=== PATIENT | male | born 1960 | race Two or more races ===

== ENCOUNTER 2019-12-27 07:49 | Outpatient (REF) | payer MEDICARE, MEDICAID, SELFPAY ==
--- NOTE | 2019-12-27 08:59 | MHC.AU.P13 ---
Adult Audiological Evaluation Date of Visit: 12/27/19 Reason for Appointment: Audiologic re-evaluation to determine possible change in hearing ability. David reports he recently experienced bilateral ear infections and treated with antibiotics by his Primary Care Physician. He reports some improvement in hearing following treatment. When seen in 2018 at this office, a trial with hearing aids was recommended; however, his insurance benefit was out of network and hearing aids could not be obtained at this office. Information was provided to contact the insurance. David notes he did not pursue amplification at that time, but is interested in trialing hearing aids now. Does patient feel they have a hearing loss?: Yes If Yes, Which Ear?: Both Ears Has hearing been tested previously?: Yes Previous Hearing Test Results: 03/12/2017 Asymmetric mild dropping to severe mixed hearing loss with the right ear being poorer than the left. Middle ear dysfunction was noted, left ear greater than right. Otoscopy: Right Ear: Very dull tympanic membrane Left Ear: Very dull tympanic membrane Tympanometry: Right Ear: Non-compliant Middle Ear System (Type B) Left Ear: Non-compliant Middle Ear System (Type B) Hearing Evaluation: Transducer(s) Used: Insert Earphones Bone Conduction Method: Conventional Audiometry Stimuli Used: Pure Tones Right Ear: Description of Hearing: Mild dropping to severe mixed hearing loss Left Ear: Description of Hearing: Mild sloping to moderate mixed hearing loss Speech Recognition Threshold (SRT): Method Used: Monitored Live Voice Stimuli Used: Spondee Words Right Ear: 35 Left Ear: 25 Word Discrimination: Method: Recorded Lists Word Lists Used: NU-6 Right Ear: 88% at a listening level of 75 dB HL Left Ear: 96% at a listening level of 65 dB HL Comparison: Compared to most recent evaluation: Overall right ear thresholds are stable and left ear levels have improved approximately 10 dB compared to 2018 Recommendations: Recommendations: Audiological re-evaluation in one year. Trial with amplification is recommended. Referral to Ear, Nose, and Throat to address middle ear dysfunction. Recommendations (Other): Provided insurance contact information to pursue hearing aids. Diagnosis: Primary Diagnosis: H90.6 Mixed Hearing Loss, Bilateral Secondary Diagnosis: H69.93 Unspecified Eustachian Tube Dysfunction, Bilateral Services Performed: Services Performed: Comprehensive Audiological Evaluation (CPT 76374) Tympanometry (CPT 99103) Signature: Provider: Lio Bustillo, [facility]
== END 2019-12-27 07:50 | disposition home or self-care (01) ==
LOC: HO.SH 07:49
PROVIDERS: PCP Internal Medicine; Referring Provider Nurse Practitioner Family; Visit Provider Internal Medicine
DX: H90.6 Mixed conductive and sensorineural hearing loss, bilateral (principal); H69.93 Unspecified Eustachian tube disorder, bilateral
CPT/HCPCS: 92557; 92567

== ENCOUNTER → 2020-06-09 15:23 | Outpatient (BNVA) | payer MEDICARE, MEDICAID, SELFPAY | PROVIDERS: PCP Internal Medicine; Referring Provider Internal Medicine; Visit Provider Student in an Organized Health Care Education/Training Program ==

== ENCOUNTER → 2020-08-20 19:34 | Outpatient (REF) | payer MEDICARE, MEDICAID, SELFPAY | LOC: HO.SL 19:34 | PROVIDERS: Visit Provider Internal Medicine | DX: G47.33 Obstructive sleep apnea (adult) (pediatric) (principal) | CPT/HCPCS: 95810 ==

== ENCOUNTER → 2020-09-01 07:56 | Outpatient (BNVA) | payer MEDICARE, SELFPAY | PROVIDERS: PCP Internal Medicine; Visit Provider Student in an Organized Health Care Education/Training Program | DX: M10.9 Gout, unspecified (principal) | CPT/HCPCS: 99212 ==

== ENCOUNTER → 2021-05-02 07:43 | Outpatient (BNVA) | payer MEDICARE, MEDICAID, SELFPAY | PROVIDERS: PCP Internal Medicine; Visit Provider Nurse Practitioner Family | DX: M10.9 Gout, unspecified (principal); Z79.899 Other long term (current) drug therapy | CPT/HCPCS: 99212 ==

== ENCOUNTER 2021-06-18 07:56 | Outpatient (REF) | payer MEDICARE, MEDICAID, SELFPAY ==
--- NOTE | 2021-06-18 | PFT_ITS ---
INDICATION: Asthma. SPIROMETRY: The FEV1 to FVC of 80% with an FEV1 of 2.87 L, which is 88% predicted, an FVC of 3.58 L which is 85% predicted. No significant response to bronchodilators noted. Maximum voluntary ventilation 82% predicted. LUNG VOLUMES: Total lung capacity 82% predicted with an expiratory reserve volume of 16% predicted secondary to an elevated BMI. DIFFUSION CAPACITY: DLCO 87% predicted. COMPARISONS: None. INTERPRETATION: No obstructive nor restrictive ventilatory defects identified. No significant response to bronchodilators noted. Normal maximum voluntary ventilation. Normal lung volumes except for decrease in the expiratory reserve volume secondary to an elevated BMI and diffusing capacity is within normal limits. If asthma is in the differential, methacholine challenge should be helpful in assessing for hyper-reactive airways, otherwise clinical correlation warranted. MD JESICA Powell/MODL / [id number]
== END 2021-06-18 07:57 | disposition home or self-care (01) ==
LOC: HO.RESP 07:56
PROVIDERS: PCP Internal Medicine; Visit Provider Internal Medicine
DX: J45.20 Mild intermittent asthma, uncomplicated (principal)
CPT/HCPCS: 94060; 94727; 94729

== ENCOUNTER → 2021-06-29 08:47 | Outpatient (BNVA) | payer MEDICARE, MEDICAID, SELFPAY | PROVIDERS: PCP Internal Medicine; Referring Provider Internal Medicine; Visit Provider Nurse Practitioner | DX: Z12.11 Encounter for screening for malignant neoplasm of colon (principal) | CPT/HCPCS: 99202 ==

== ENCOUNTER 2021-06-30 10:01 | Outpatient (REF) | payer MEDICARE, MEDICAID, SELFPAY ==
[2021-06-30 10:13] LABS: MANUAL DIFF FLAG NO
[2021-06-30 10:42] LABS: Basophils Percent Auto 0.5 % (0-2); Eosinophils Absolute Auto 0.3 X10*3/uL (0.0-0.4); Hematocrit 40.7 % (42.0-52.0); Hemoglobin 13.3 g/dl (14.0-18.0); Imm Gran Abs Auto 0.02 X10*3/uL (0.00-0.03); Imm Gran Pct Auto 0.3 % (0.0-0.4); Lymphocytes Absolute Auto 2.2 X10*3/uL (1.2-4.9); Lymphocytes Percent Auto 29.8 % (20-40); Mean Corpuscular HGB Conc 32.7 g/dl (31.0-36.0); Mean Corpuscular Hemoglobin 28.1 pg (27.0-33.0); Mean Corpuscular Volume 85.9 fL (80.0-98.0); Mean Platelet Volume 9.5 fL (9.4-12.4); Monocytes Absolute Auto 0.6 X10*3/uL (0.1-1.2); Monocytes Percent Auto 7.4 % (2-11); Neutrophils Absolute Auto 4.3 x10*3/uL (2.0-8.3); Platelet Count 218 X10*3/uL (160-400); Red Blood Count 4.74 X10*6/uL (4.60-5.80); White Blood Count 7.5 X10*3/uL (4.8-10.8)
[2021-06-30 11:22] LABS: Alanine Aminotransferase 30 U/L (0-40); Alkaline Phosphatase 63 U/L (39-117); Anion Gap 12 (12-20); Aspartate Amino Transferase 27 U/L (5-37); Bilirubin Total 0.5 mg/dL (0.0-1.0); Blood Urea Nitrogen 17 mg/dL (9-16); Calcium 8.9 mg/dL (8.4-10.2); Carbon Dioxide 22 mmol/L (22-29); Chloride 107 mmol/L (96-108); Estimated Glomerular Filt Rate > 60; Glucose Random 107 mg/dL (60-115); Potassium 4.4 mmol/L (3.3-5.1); Sodium 137 mmol/L (135-145); Total Protein 6.9 g/dL (6.5-8.0)
== END 2021-06-30 10:02 | disposition home or self-care (01) ==
LOC: HO.LAB 10:01
PROVIDERS: Absent Provider Nurse Practitioner Family; PCP Internal Medicine; Visit Provider Nurse Practitioner
DX: Z12.11 Encounter for screening for malignant neoplasm of colon (principal)
CPT/HCPCS: 36415; 80053; 85025

== ENCOUNTER 2022-05-03 09:55 | Day surgery (SDC) | payer MEDICARE, MEDICAID, SELFPAY ==
[2022-04-30 15:11] VITALS: BMI 34.9
--- NOTE | 2022-05-02 13:28 | HO.ANESPROP2 ---
Documented by User: Chandrika Weston NP 05/02/22 13:28 HPI - Anesthesia Eval Consult details Narrative: 62yo M for Colonoscopy PMFSH Active Problems Active Problems: All Active Problems (Updated 04/30/22 @ 15:06 by Brook Grady RN) Gout (Acute) CAROLE (obstructive sleep apnea) (Acute) Hypertension (Acute) High cholesterol (Acute) Asthma (Acute) Hearing loss (Acute) Degenerative disc disease, lumbar (Acute) Varicose veins of anus or rectum (Acute) Gout (Acute) Colon cancer screening (Acute) Past Medical History Medical History (Updated 04/30/22 @ 15:06 by Brook Grady RN) Asthma DDD (degenerative disc disease), lumbar Elevated cholesterol Gout HTN (hypertension) Sleep apnea Surgical History Surgical History (Updated 04/30/22 @ 15:09 by Brook Grady RN) H/O colonoscopy Hx of vasectomy Social History Social History Alcohol intake: former Patient Tobacco Use Status: Former Tobacco user Tobacco use type: Cigarette Cigarettes Per Day: 25 Years Smoked: 10 Advance Directives: No Advance Directives Information Provided: Yes Meds Allergies Allergy/AdvReac Type Severity Reaction Status Date / Time No Known Allergies Allergy Verified 06/29/21 09:08 Home Medications Medication Instructions Recorded Confirmed Last Taken Type albuterol sulfate 90 mcg/actuation 2 puff inhalation Q6H PRN 09/01/20 Unknown History aerosol inhaler fluticasone propionate 50 1 spray intranasal DAILY 09/01/20 Unknown History mcg/actuation nasal spray,suspension lisinopril 20 1 tab PO DAILY 09/01/20 Unknown History mg-hydrochlorothiazide 12.5 mg tablet multivitamin 1 tab PO DAILY 09/01/20 Unknown History naproxen 500 mg tablet 500 mg PO BID 09/01/20 Unknown History allopurinol 300 mg tablet 300 mg PO DAILY 05/02/21 Unknown History indomethacin 50 mg capsule 50 mg PO TID PRN 05/02/21 Unknown History sildenafil 50 mg tablet (Viagra) 50 mg PO DAILY PRN 05/02/21 05/02/21 Unknown History Exam Exam Date and Time: May 02, 2022 1328 Height,Weight and Vital Signs: Height 5 ft 8 in Weight 104.326 kg Assessment and Plan Assessment Anesthesia Assessment: Chart Reviewed Documented by User: Arturo Garcia MD 05/03/22 10:58 PMFSH Past Medical History Medical History (Updated 04/30/22 @ 15:06 by Brook Grady RN) Asthma DDD (degenerative disc disease), lumbar Elevated cholesterol Gout HTN (hypertension) Sleep apnea Family History Family history of problems with anesthesia: No Surgical History Surgical History (Updated 04/30/22 @ 15:09 by Brook Grady RN) H/O colonoscopy Hx of vasectomy History of Problems with Anesthesia: No Social History Social History Alcohol intake: former Patient Tobacco Use Status: Former Tobacco user Tobacco use type: Cigarette Cigarettes Per Day: 25 Years Smoked: 10 Advance Directives: No Advance Directives Information Provided: Yes Meds Allergies Allergy/AdvReac Type Severity Reaction Status Date / Time No Known Allergies Allergy Verified 06/29/21 09:08 Home Medications Medication Instructions Recorded Confirmed Last Taken Type albuterol sulfate 90 mcg/actuation 2 puff inhalation Q6H PRN 09/01/20 Unknown History aerosol inhaler fluticasone propionate 50 1 spray intranasal DAILY 09/01/20 Unknown History mcg/actuation nasal spray,suspension lisinopril 20 1 tab PO DAILY 09/01/20 Unknown History mg-hydrochlorothiazide 12.5 mg tablet multivitamin 1 tab PO DAILY 09/01/20 Unknown History naproxen 500 mg tablet 500 mg PO BID 09/01/20 Unknown History allopurinol 300 mg tablet 300 mg PO DAILY 05/02/21 Unknown History indomethacin 50 mg capsule 50 mg PO TID PRN 05/02/21 Unknown History sildenafil 50 mg tablet (Viagra) 50 mg PO DAILY PRN 05/02/21 05/02/21 Unknown History Exam Airway Mallampati Class: II TM Dist: >3cm Neck ROM: Limited Heart: rrr Lungs: cta Assessment and Plan Assessment Anesthesia Assessment: Anesthesia Plan Discussed Final Anesthetic Review Family History of Problems with Anesthesia: No History of Problems with Anesthesia: No ASA Class: III Final Preanesthetic Review: No Changes in Pt Med Stat, Meds/Allgs Chart Reviewed, Consent Obtained/Reviewed and Anes Risks/Benef Reviewed Patient Risk: Intermediate Procedure Risk: Low Anesthetic Plan Anesthetic Plan: GA and Agree w/ Assess. and Plan Disposition: Standard PACU
--- NOTE | 2022-05-03 10:37 | MHC.SHP ---
Pre-Procedural Eval Section A Date of Service: 05/03/22 The patient is an INPATIENT: No The History & Physical has been completed within 30 days and I have reviewed it.: No Section B Chief Complaint: screening, hx of colon polyps Details of Present Illness: Colon cancer screening, history of colon polyps Relevant Family History (Specify if Yes): No Relevant Social History: Tobacco Use Present Medications: see Short Stay Collaborative assessment Medical History: Significant History (Obstructive sleep apnea Hypertension High cholesterol Asthma Sensorineural hearing loss Lumbar degenerative disc disease Varicose veins Erectile dysfunction-vascular Gouty arthritis) History of Previous Operations: Relevant previous surgery/procedure and date(s) (History of colonoscopy) Allergies: Allergies Allergy/AdvReac Type Severity Reaction Status Date / Time No Known Allergies Allergy Verified 06/29/21 09:08 Review of Systems Sugical H&P ROS: Negative: Constitution, Cardiovascular, Respiratory and Gastrointestinal Exam Surgical H&P Exam: Normal: Heart, Normal: Lungs, Normal: Extremities and Normal: Abdomen Plan Diagnosis/Plan: Unchanged I have reviewed the history and physical and performed a pertinent physical examination on my patient. No changes have occurred unless specified. Time Spent With Patient Time: Total time managing care of this patient today ____ minutes.
--- NOTE | 2022-05-03 10:44 | P.BOP_ITS ---
Brief Operative Note Date of Service: 05/03/22 Pre-op diagnosis: Colon cancer screening, history of colon polyps Post-op diagnosis: other (Colon polyps, diverticulosis, hemorrhoids) Procedure: COLONOSCOPY TO CECUM WITH BIOPSIES AND SNARE POLYPECTOMY Surgeon: Kamlesh Mcgee MD Anesthesia: MAC Was an Event Management Consultant used for this Procedure?: Yes Event Management Consultant: Emma Patel Estimated blood loss (mL): 1 Pathology: other ( a. transverse colon polyp b. rectal polyp) Condition: stable Disposition: PACU
--- NOTE | 2022-05-03 10:44 | P.OP_ITS ---
Operative Note Operative Note Date of Service: 05/03/22 Narrative: COLONOSCOPY TILL CECUM WITH BIOPSIES AND SNARE POLYPECTOMY Indication:? Colon cancer screening Endoscopist:? Kamlesh Mcgee MD Anesthesia Provider:?Dr Dodson Anesthesia type:?MAC Consent: Indications for the procedure and potential complications of bleeding, perforation, reaction to medications and missed diagnosis were discussed with the patient and informed consent was obtained. Instrument: Olympus PCF H 190 L variable stiffness pediatric colonoscope Monitoring: Vital signs and clinical assessment, intermittent blood pressure monitoring, continuous EKG monitoring, Pulse oximetry and Carbon Dioxide monitoring were done throughout the procedure. Please see anesthesia flowsheet. Colon withdrawl time was 19 minutes. Procedure: The patient was placed in the left lateral decubitis position and pre-procedure medications were administered. After a digital rectal examination of the ano-rectum, the video colonoscope was inserted into the rectum and advanced through the colon to the cecum. The colonoscope was slowly withdrawn in a retrograde panoramic fashion and the colon mucosa was carefully examined including a retroflexed view of the rectum. Findings and interventions are described below. Procedure Difficulty: Left lower quadrant pressure was applied to intubate the cecum Findings: Terminal Ileum: Not evaluated Cecum: Normal Ascending Colon: 8-10 mm non-bleeding AVM Transverse Colon: A 10-12 mm sessile polyp removed by a hot snare Descending Colon: Normal Sigmoid Colon: Moderate diverticulosis Rectum: A 5-6 mm diminutive appearing polyp - biopsied. Ano-rectum: Moderate internal hemorrhoids Colon preparation: Excellent Impression and Post Procedure Diagnosis: Colonoscopy Findings: One medium sized and one small polyps removed Moderate diverticulosis seen in the sigmoid colon Moderate hemorrhoids on retroflexed exam. Plan: Await pathology results Patient has an appointment on 05/16/22 in the GI Clinic with Guillermina Hnutley NP. Repeat Colonoscopy interval based on path results - in 3-5 years if polyps are adenomatous and 10 years if polyps are hyperplastic. Above findings were reviewed with the patient and colon polyps and diverticulosi s handouts were given in the discharge area
[2022-05-03 11:24] VITALS: BP 152/84; PULSE 85; RESP 14; TEMP 37.1; O2SAT 95
[2022-05-03 12:03] VITALS: BP 126/79; PULSE 89; RESP 16; TEMP 36.9; O2SAT 95
[2022-05-03 12:17] VITALS: BP 144/84; PULSE 71; RESP 16; O2SAT 96
[2022-05-03 12:30] VITALS: BP 126/93; PULSE 78; RESP 16; TEMP 36.9; O2SAT 96
== END 2022-05-03 13:20 | disposition home or self-care (01) ==
PROVIDERS: PCP Internal Medicine; Visit Provider Internal Medicine Gastroenterology
PROC: 0DJD8ZZ Inspection of Lower Intestinal Tract, Via Natural or Artificial Opening Endoscopic (ICD-10-PCS; CPT 45378; principal; 2022-05-03 11:00)
DX: Z12.11 Encounter for screening for malignant neoplasm of colon (principal); Z86.010 Personal history of colon polyps; K63.5 Polyp of colon; K62.1 Rectal polyp; K55.20 Angiodysplasia of colon without hemorrhage; K57.30 Diverticulosis of large intestine without perforation or abscess without bleeding; K64.8 Other hemorrhoids; K21.9 Gastro-esophageal reflux disease without esophagitis; I10 Essential (primary) hypertension; E78.00 Pure hypercholesterolemia, unspecified; Z87.891 Personal history of nicotine dependence; G47.33 Obstructive sleep apnea (adult) (pediatric); J45.909 Unspecified asthma, uncomplicated; M10.00 Idiopathic gout, unspecified site; Z79.51 Long term (current) use of inhaled steroids; Z79.899 Other long term (current) drug therapy
CPT/HCPCS: 45385; 45380; 88305

== ENCOUNTER → 2022-05-16 09:42 | Outpatient (BNVA) | payer MEDICARE, MEDICAID, SELFPAY | PROVIDERS: PCP Internal Medicine; Visit Provider Nurse Practitioner | DX: D12.6 Benign neoplasm of colon, unspecified (principal) | CPT/HCPCS: 99212 ==

== ENCOUNTER 2022-06-21 13:46 | Outpatient (REF) | payer MEDICARE, MEDICAID, SELFPAY ==
--- NOTE | ~2022-06-21 | XR_ITS ---
EXAMINATION: XR HIP, RIGHT CLINICAL INFORMATION: Right hip pain. COMPARISON: None available. TECHNIQUE: Two views of the right hip. FINDINGS: Minimal right hip degenerative joint changes are seen. There is no acute fracture or dislocation. The visualized right hemipelvis is intact. The soft tissues are unremarkable. XR/XR hip RT min 2V IMPRESSION: Minimal right hip degenerative joint changes suggesting osteoarthritis. No acute fracture.
== END 2022-06-21 13:47 | disposition home or self-care (01) ==
LOC: HO.XRAY 13:46
PROVIDERS: Visit Provider Student in an Organized Health Care Education/Training Program
DX: M25.551 Pain in right hip (principal)
CPT/HCPCS: 73502

== ENCOUNTER 2022-09-26 09:19 | Outpatient (REF) | payer MEDICARE, MEDICAID, SELFPAY ==
[2022-09-26 11:59] LABS: Cholesterol 155 mg/dL; HDL Cholesterol 29 mg/dL; LDL Cholesterol Calculated 98 mg/dl; Triglycerides 142 mg/dL
[2022-09-26 12:03] LABS: Anion Gap 15 (12-20); Blood Urea Nitrogen 21 mg/dL (9-16); Calcium 9.6 mg/dL (8.4-10.2); Carbon Dioxide 21 mmol/L (22-29); Chloride 107 mmol/L (96-108); Estimated Glomerular Filt Rate > 60; Glucose Random 110 mg/dL (60-115); Potassium 4.4 mmol/L (3.3-5.1); Sodium 139 mmol/L (135-145)
[2022-09-26 12:17] LABS: Reflex LDLD? No
[2022-09-26 12:21] LABS: TSH reflex Free T4 2.29 uIU/mL (0.32-4.0); Vitamin D 25-OH Total 27.2 ng/mL (>30)
== END 2022-09-26 09:20 | disposition home or self-care (01) ==
LOC: HO.HHCL 09:19
PROVIDERS: Visit Provider Internal Medicine
DX: M16.0 Bilateral primary osteoarthritis of hip (principal); I10 Essential (primary) hypertension
CPT/HCPCS: 36415; 80048; 80061; 82306; 84443

== ENCOUNTER → 2023-01-09 19:00 | Outpatient (BNV) | payer MEDICARE, MEDICAID, SELFPAY | PROVIDERS: PCP Internal Medicine; Visit Provider Psychiatry & Neurology Neurology | DX: G47.33 Obstructive sleep apnea (adult) (pediatric) (principal) | CPT/HCPCS: 95811 ==

== ENCOUNTER → 2023-01-09 20:30 | Outpatient (REF) | payer MEDICARE, MEDICAID, SELFPAY | LOC: HO.SL 20:30 | PROVIDERS: PCP Internal Medicine; Visit Provider Internal Medicine | DX: G47.33 Obstructive sleep apnea (adult) (pediatric) (principal) | CPT/HCPCS: 95811 ==

== ENCOUNTER 2023-09-04 14:13 | Outpatient (AMB) | payer MEDICARE, MEDICAID, SELFPAY ==
--- NOTE | 2023-09-04 14:42 | MHC.OFFVIS ---
Vital Signs 09/04/23 14:46 Height 5 ft 6 in Weight 303 lb 12.752 oz BMI 49.0 BP 124/72 Blood Pressure Location Lt brachial Position Sitting Pulse 80 Pulse Source Pulse Oximeter Pulse Oximetry (%) 97 Oxygen Delivery Method Room Air Intake Visit Reasons: Gout/CM Intake Note: Patient presents for Gout. [employer] Hairspring Assembler Required: Yes Balance And Hairspring Assembler Services: Balance And Hairspring Assembler Present Balance And Hairspring Assembler Name: Emilia [id number] Allergies No Known Allergies Allergy (Verified 09/04/23 14:45) Medication List - Last Reconciled 09/04/23 by Tomy Perez MD albuterol sulfate 90 mcg/actuation 2 puffs inhalation Q6H PRN allopurinol 300 mg PO DAILY calcium carbonate (Calcium Antacid) 200 mg PO TID PRN fluticasone propionate 50 mcg/actuation 1 spray intranasal DAILY indomethacin 50 mg PO TID PRN lisinopril-hydrochlorothiazide 20-12.5 mg 1 tab PO DAILY loratadine 10 mg PO DAILY multivitamin 1 tab PO DAILY naproxen 500 mg PO BID sildenafil mg PO HPI Comments Details: This is a 63-year-old male with gout who presents for follow-up. He was last seen by Pascale Palencia about 2 years ago. He remains on allopurinol 300 mg daily. He states that he has been getting gout flare-ups affecting his knees. His right knee would become head. Most recent episode was last Friday, he took indomethacin 1 tab, he had diarrhea, the tablet was . [facility] Medical History DDD (degenerative disc disease), lumbar Sleep apnea Asthma Elevated cholesterol HTN (hypertension) Gout Surgical History Hx of vasectomy H/O colonoscopy Social History Alcohol intake: former Patient Tobacco Use Status: Former Tobacco user Tobacco use type: Cigarette Cigarettes Per Day: 25 Years Smoked: 10 Review of Systems [facility] Reports arthralgias Physical Exam Vital Signs: Last Vital Signs Pulse 80 09/04/23 14:46 BP 124/72 09/04/23 14:46 Pulse Ox 97 09/04/23 14:46 Oxygen Delivery Method Room Air 09/04/23 14:46 BMI result Body Mass Index 49.0 Const General: cooperative, healthy appearing and comfortable Nutritional Appearance: obese morbidly obese Orientation/consciousness: patient oriented x3 Limitations: no limitations HEENT Head: Yes normocephalic and Yes atraumatic Mouth: moist mucous membranes Resp Effort & Inspection: normal respiratory effort and able to speak in complete sentences Auscultation: clear to auscultation bilaterally Cardio Rate: regular rate Skin General skin exam: no rashes or lesions noted Neuro General: patient oriented x3 Extrem Other: Right groin pain with straight leg raise test Right knee pain with full flexion Bilateral limited flexion and extension of both knees No knee swelling, warmth or tenderness bilaterally No ankle swelling or tenderness bilaterally No tophi noted Assessment & Plan Assessment & Plan (1) Gout: Code(s): M10.9 - Gout, unspecified Category: Medical Qualifiers: Gout site: multiple sites Gout etiology: idiopathic Chronicity: chronic Presence of tophus: without tophus Qualified Code(s): M1A.09X0 - Idiopathic chronic gout, multiple sites, without tophus (tophi) Plan: This is a 63-year-old male with gout who presents for follow-up. He remains on allopurinol 300 mg daily. Patient states that he has been having gout flare-ups affecting his left knee. Upon evaluation the clinical history is not classic for gout flare-up, likely osteoarthritis of knees and hips. Will check uric acid level. Check x-rays of involved joints. Advised patient to try [id number] Voltaren gel for his knee pain Follow-up in 4-5 weeks Plan I spent 19 minutes reviewing patient's chart, evaluating patient, ordering diagnostic workup, counseling patient and documenting in the chart Orders: Orders Complete Blood Count Auto Diff Today M10.9 - Gout, unspecified XR hip LT min 2V Today M16.0 - Bilateral primary osteoarthritis of hip XR knee LT 3V Today M16.0 - Bilateral primary osteoarthritis of hip XR knee standing BI Today M16.0 - Bilateral primary osteoarthritis of hip Comprehensive Met. Panel Today M10.9 - Gout, unspecified Uric Acid Today M10.9 - Gout, unspecified XR hip RT min 2V Today M16.0 - Bilateral primary osteoarthritis of hip XR knee RT 3V Today M16.0 - Bilateral primary osteoarthritis of hip Coding Level of Care Code Est Pt Level 3 (30855) Diagnoses Idiopathic chronic gout of multiple sites without tophus M1A.09X0 Gout site: multiple sites Gout etiology: idiopathic Chronicity: chronic Presence of tophus: without tophus
[2023-09-04 14:46] VITALS: BP 124/72; PULSE 80; O2SAT 97; BMI 49.0
== END 2023-09-04 15:19 | disposition home or self-care (01) ==
PROVIDERS: PCP Internal Medicine; Visit Provider Student in an Organized Health Care Education/Training Program
DX: M1A.09X0 Idiopathic chronic gout, multiple sites, without tophus (tophi) (principal)
CPT/HCPCS: 99213

== ENCOUNTER 2023-09-04 14:13 | Outpatient (REF) | payer MEDICARE, MEDICAID, SELFPAY ==
--- NOTE | ~2023-09-04 | XR_ITS ---
EXAMINATION: XR BILATERAL HIPS WITH AP PELVIS CLINICAL INFORMATION: Bilateral hip pain COMPARISON: Right hip radiographs 06/21/2022 TECHNIQUE: AP and frog-leg lateral views of each hip and an AP view of the pelvis. FINDINGS: No fracture or malalignment. There is mild narrowing of the right hip joint with small marginal osteophytes along the superior acetabulum. The left hip appears normal. XR/XR hip BI w PEL1V IMPRESSION: Mild right hip osteoarthritis.
--- NOTE | ~2023-09-04 | XR_ITS ---
EXAMINATION: XR KNEE, RIGHT XR KNEE, LEFT CLINICAL INDICATION: Bilateral osteoarthritis of hip. COMPARISON: 01/29/2018 TECHNIQUE: 4 views of each knee. FINDINGS: RIGHT KNEE: Trace joint effusion. Mild narrowing of the medial and patellofemoral compartments with minimal marginal spurring. LEFT KNEE: Trace joint effusion. Moderate to marked narrowing of medial compartment with subchondral sclerosis. Small marginal osteophytes. Mild narrowing of the patellofemoral compartment with degenerative changes. XR/XR knee LT 4V IMPRESSION: 1. Moderate degenerative changes left knee. 2. Mild degenerative changes right knee.
--- NOTE | ~2023-09-04 | XR_ITS ---
EXAMINATION: XR KNEE, RIGHT XR KNEE, LEFT CLINICAL INDICATION: Bilateral osteoarthritis of hip. COMPARISON: 01/29/2018 TECHNIQUE: 4 views of each knee. FINDINGS: RIGHT KNEE: Trace joint effusion. Mild narrowing of the medial and patellofemoral compartments with minimal marginal spurring. LEFT KNEE: Trace joint effusion. Moderate to marked narrowing of medial compartment with subchondral sclerosis. Small marginal osteophytes. Mild narrowing of the patellofemoral compartment with degenerative changes. XR/XR knee RT 4V IMPRESSION: 1. Moderate degenerative changes left knee. 2. Mild degenerative changes right knee.
[2023-09-04 15:40] LABS: MANUAL DIFF FLAG NO
[2023-09-04 16:20] LABS: Basophils Absolute Auto 0.1 X10*3/uL (0.0-0.2); Basophils Percent Auto 0.6 % (0-2); Eosinophils Absolute Auto 0.2 X10*3/uL (0.0-0.4); Eosinophils Percent Auto 2.4 % (0-4); Hematocrit 41.1 % (42.0-52.0); Hemoglobin 13.7 g/dl (14.0-18.0); Imm Gran Abs Auto 0.03 X10*3/uL (0.00-0.03); Imm Gran Pct Auto 0.3 % (0.0-0.4); Lymphocytes Absolute Auto 2.7 X10*3/uL (1.2-4.9); Lymphocytes Percent Auto 30.4 % (20-40); Mean Corpuscular HGB Conc 33.3 g/dl (31.0-36.0); Mean Corpuscular Hemoglobin 28.8 pg (27.0-33.0); Mean Corpuscular Volume 86.3 fL (80.0-98.0); Mean Platelet Volume 9.4 fL (9.4-12.4); Monocytes Absolute Auto 0.6 X10*3/uL (0.1-1.2); Monocytes Percent Auto 7.1 % (2-11); Neutrophils Absolute Auto 5.2 x10*3/uL (2.0-8.3); Neutrophils Percent Auto 59.2 % (45-73); Platelet Count 232 X10*3/uL (160-400); Red Blood Count 4.76 X10*6/uL (4.60-5.80); Red Cell Distribution Width 15.4 % (11.0-16.0); White Blood Count 8.9 X10*3/uL (4.8-10.8)
[2023-09-04 17:32] LABS: Alanine Aminotransferase 40 U/L (0-40); Albumin Level 4.3 g/dL (3.5-5.0); Alkaline Phosphatase 62 U/L (39-117); Anion Gap 12 (12-20); Aspartate Amino Transferase 30 U/L (5-37); Bilirubin Total 0.6 mg/dL (0.0-1.0); Blood Urea Nitrogen 15 mg/dL (9-16); Calcium 9.6 mg/dL (8.4-10.2); Carbon Dioxide 26 mmol/L (22-29); Chloride 105 mmol/L (96-108); Estimated Glomerular Filt Rate > 60; Glucose Random 88 mg/dL (60-115); Potassium 4.5 mmol/L (3.3-5.1); Sodium 138 mmol/L (135-145); Total Protein 7.6 g/dL (6.5-8.0); Uric Acid 5.8 mg/dL (3.4-7.0)
== END 2023-09-04 14:14 | disposition home or self-care (01) ==
LOC: HO.LAB 14:13
PROVIDERS: PCP Internal Medicine; Visit Provider Student in an Organized Health Care Education/Training Program
DX: M1A.09X0 Idiopathic chronic gout, multiple sites, without tophus (tophi) (principal)
CPT/HCPCS: 36415; 73521; 73564; 80053; 84550; 85025; 99212

== ENCOUNTER 2023-11-05 15:27 | Outpatient (AMB) | payer MEDICARE, MEDICAID, SELFPAY ==
[2023-11-05 15:34] VITALS: BP 120/60; PULSE 58; O2SAT 95; BMI 48.5
--- NOTE | 2023-11-05 15:34 | MHC.OFFVIS ---
Vital Signs 11/05/23 15:34 Height 5 ft 6 in Weight 300 lb 7.841 oz BMI 48.5 BP 120/60 Blood Pressure Location Lt brachial Position Sitting Pulse 58 Pulse Source Pulse Oximeter Pulse Oximetry (%) 95 Oxygen Delivery Method Room Air Intake Visit Reasons: Gout Intake Note: Patient last seen by Doctor Tomy Perez on 09/04/23. Presents today for Gout and labs/XR's results. Patient refused the vp rheumatology today. Accompanied by: , granddaughter Allergies No Known Allergies Allergy (Verified 11/05/23 15:38) Medication List - Last Reconciled 11/05/23 by Tomy Perez MD albuterol sulfate 90 mcg/actuation 2 puffs inhalation Q6H PRN allopurinol 300 mg PO DAILY calcium carbonate (Calcium Antacid) 200 mg PO TID PRN fluticasone propionate 50 mcg/actuation 1 spray intranasal DAILY ibuprofen 600 mg PO Q6H indomethacin 50 mg PO TID PRN lisinopril-hydrochlorothiazide 20-12.5 mg 1 tab PO DAILY loratadine 10 mg PO DAILY multivitamin 1 tab PO DAILY naproxen 500 mg PO BID sildenafil mg PO HPI Comments Details: This is a 63-year-old male with gout and osteoarthritis who presents for follow-up. He presented last visit with right lower back pain, right hip and groin pain as well as left knee pain. He takes naproxen 500 mg without much relief. He states that his main complaint today is his right lower back pain. stated that patient had an injection has lower back about 10 years ago which gave him some relief. [facility] Medical History DDD (degenerative disc disease), lumbar Sleep apnea Asthma Elevated cholesterol HTN (hypertension) Gout Surgical History Hx of vasectomy H/O colonoscopy Social History Alcohol intake: former Patient Tobacco Use Status: Former Tobacco user Tobacco use type: Cigarette Cigarettes Per Day: 25 Years Smoked: 10 Review of Systems Musc Reports back pain, Reports arthralgias and Reports radiating pain into limb Physical Exam Vital Signs: Last Vital Signs Pulse 58 11/05/23 15:34 BP 120/60 11/05/23 15:34 Pulse Ox 95 11/05/23 15:34 Oxygen Delivery Method Room Air 11/05/23 15:34 BMI result Body Mass Index 48.5 Const General: cooperative, healthy appearing and comfortable Nutritional Appearance: obese morbidly obese Orientation/consciousness: patient oriented x3 Limitations: no limitations HEENT Head: Yes normocephalic and Yes atraumatic Mouth: moist mucous membranes Resp Effort & Inspection: normal respiratory effort and able to speak in complete sentences Cardio Rate: regular rate Skin General skin exam: no rashes or lesions noted Neuro General: patient oriented x3 Extrem Other: Walks with a limp Positive straight leg raise test on the right Right groin pain with right foot inversion Bilateral limited flexion and extension of both knees No knee swelling, warmth or tenderness bilaterally No ankle swelling or tenderness bilaterally No tophi noted Assessment & Plan Assessment & Plan (1) Lumbar radiculopathy: Code(s): M54.16 - Radiculopathy, lumbar region Category: Medical Plan: This is a 63-year-old male with history of gout who presents for evaluation of multiple joint pain including his right lower back radiating to his right lower extremity, right groin and left knee. His main complaint however is his right lumbar radiculopathy. He had an injection has lower back years ago which was effective. I discussed pain management evaluation. Patient agreed for referral. Will refer to pain management (2) Degenerative arthritis: Code(s): M19.90 - Unspecified osteoarthritis, unspecified site Category: Medical (3) Gout: Code(s): M10.9 - Gout, unspecified Category: Medical Qualifiers: Gout site: multiple sites Gout etiology: idiopathic Chronicity: chronic Presence of tophus: without tophus Qualified Code(s): M1A.09X0 - Idiopathic chronic gout, multiple sites, without tophus (tophi) Plan: Gout well controlled with allopurinol 300 mg daily. Uric acid level at target 5.8 mg/dL. Gets allopurinol prescription from PCP. Continue to follow-up with PCP Follow-up with us as needed Plan I spent 22 minutes reviewing patient's chart, evaluating patient, ordering diagnostic workup, counseling patient and documenting in the chart Orders: Referrals Pain Management Referral M54.16 - Radiculopathy, lumbar region Coding Level of Care Code Est Pt Level 4 (96903) Diagnoses Lumbar radiculopathy M54.16 Degenerative arthritis M19.90 Idiopathic chronic gout of multiple sites without tophus M1A.09X0 Gout site: multiple sites Gout etiology: idiopathic Chronicity: chronic Presence of tophus: without tophus
== END 2023-11-05 16:08 | disposition home or self-care (01) ==
PROVIDERS: PCP Internal Medicine; Visit Provider Student in an Organized Health Care Education/Training Program
DX: M54.16 Radiculopathy, lumbar region (principal); M19.90 Unspecified osteoarthritis, unspecified site; M1A.09X0 Idiopathic chronic gout, multiple sites, without tophus (tophi)
CPT/HCPCS: 99214

== ENCOUNTER → 2023-11-05 15:27 | Outpatient (BNVA) | payer MEDICARE, MEDICAID, SELFPAY | PROVIDERS: PCP Internal Medicine; Visit Provider Student in an Organized Health Care Education/Training Program | DX: M54.16 Radiculopathy, lumbar region (principal); M1A.09X0 Idiopathic chronic gout, multiple sites, without tophus (tophi); M19.90 Unspecified osteoarthritis, unspecified site | CPT/HCPCS: 99212 ==

== ENCOUNTER 2023-12-03 14:21 | Outpatient (AMB) | payer MEDICARE, MEDICAID, SELFPAY ==
--- NOTE | 2023-12-03 14:27 | A.OFFVIS_ITS ---
Vital Signs 12/03/23 14:28 Height 5 ft 6 in Weight 297 lb BMI 47.9 BP 126/73 Blood Pressure Location Lt brachial Position Sitting Pulse 71 Pulse Source Pulse Oximeter Pulse Oximetry (%) 97 Oxygen Delivery Method Room Air Intake Visit Reasons: Radiculopathy, lumbar region Allergies No Known Allergies Allergy (Verified 12/03/23 14:28) Medication List - Last Reconciled 12/03/23 by Alison Blake albuterol sulfate 90 mcg/actuation 2 puffs inhalation Q6H PRN allopurinol 300 mg PO DAILY calcium carbonate (Calcium Antacid) 200 mg PO TID PRN fluticasone propionate 50 mcg/actuation 1 spray intranasal DAILY ibuprofen 600 mg PO Q6H indomethacin 50 mg PO TID PRN lisinopril-hydrochlorothiazide 20-12.5 mg 1 tab PO DAILY loratadine 10 mg PO DAILY multivitamin 1 tab PO DAILY naproxen 500 mg PO BID sildenafil mg PO HPI Comments Details: David is a very pleasant 63-year-old male who presents the office today for evaluation management of his chronic right hip pain Patient endorses right hip pain rated today as 8/10, constant daily pain Denies inciting injury, fall, trauma Pain is worse with sitting, standing and walking Denies radiation of the pain down the lower extremity. Does endorse some pain in the right groin Pain with internal/external rotation of the right hip Denies lower back pain Patient completed physical therapy < 1 year ago without improvement of his symptoms. He continues with home exercise program He has tried ice, heat, nonsteroidal anti-inflammatory medications and Tylenol without improvement of his symptoms Denies numbness, tingling, weakness or shooting pains down either lower extremity Denies red flag symptoms including new loss of bowel, bladder or saddle anesthesia. Ambulates with the use of a cane In terms of muscle damage condition is described as dull, sore, aching, tight, squeezing Pain is negatively impacting patient's enjoyment of life, general activity, work, sleep, recreational activities Denies current use of anticoagulants Denies implantable devices, pacemaker defibrillator Denies current use of nicotine, tobacco, alcohol or illicit substances [facility] Medical History DDD (degenerative disc disease), lumbar Sleep apnea Asthma Elevated cholesterol HTN (hypertension) Gout Surgical History Hx of vasectomy H/O colonoscopy Social History Alcohol intake: former Patient Tobacco Use Status: Former Tobacco user Tobacco use type: Cigarette Cigarettes Per Day: 25 Years Smoked: 10 Review of Systems Const All systems reviewed & are unremarkable except as noted in HPI and below Physical Exam Vital Signs: Last Vital Signs Pulse 71 12/03/23 14:28 BP 126/73 12/03/23 14:28 Pulse Ox 97 12/03/23 14:28 Oxygen Delivery Method Room Air 12/03/23 14:28 BMI result Body Mass Index 47.9 General: awake, alert, oriented. Answers questions appropriately. Fully engaged in examination. Skin: warm, dry, intact HEENT: Normocephalic. Hearing intact. Cardiac: External chest normal in appearance. Respiratory: No cough, audible wheezing or stridor. Abdomen: without gross distension. MS: No obvious swelling or deformities. Nontender over midline lumbar vertebrae and lumbar paraspinal muscles Nontender over bilateral PSIS SLR negative bilaterally Nontender over GTB Right hip: Pain with internal/external rotation. Limited range of motion secondary to pain. Neurological: Oriented to person, place, time and situation. Thought process intact. Ambulates with the use of a cane Psychiatric: Appropriate mood and affect. Good judgment and insight. Results Reviewed Results Reviewed: 08/2023 XR/XR hip BI w PEL1V FINDINGS: No fracture or malalignment. There is mild narrowing of the right hip joint with small marginal osteophytes along the superior acetabulum. The left hip appears normal. IMPRESSION: Mild right hip osteoarthritis. Assessment & Plan Assessment & Plan (1) Right hip pain: Code(s): M25.551 - Pain in right hip Category: Medical Plan David is a very pleasant 63-year-old male who presented to the office today for evaluation management of his right hip pain Recent x-ray reviewed, results as per above Patient has exhausted conservative therapy including PT, home exercise program, ikom-cjl-cdtazyf medications, nonsteroidal anti medications, heat and ice all without improvement of symptoms Will schedule for fluoroscopy guided right intra-articular hip injection with local anesthetic. All questions and concerns were answered, patient agrees with plan. Follow up after injection, sooner if needed Coding Level of Care Code New Pt Level 4 (95212) Complex EM visit Add On G2211 Diagnoses Right hip pain M25.551
[2023-12-03 14:28] VITALS: BP 126/73; PULSE 71; O2SAT 97; BMI 47.9
== END 2023-12-03 14:56 | disposition home or self-care (01) ==
PROVIDERS: PCP Internal Medicine; Visit Provider Registered Nurse Emergency
DX: M25.551 Pain in right hip (principal)
CPT/HCPCS: 99204; 99214; G2211

== ENCOUNTER → 2023-12-03 14:21 | Outpatient (BNVA) | payer MEDICARE, MEDICAID, SELFPAY | PROVIDERS: PCP Internal Medicine; Visit Provider Registered Nurse Emergency | DX: M54.16 Radiculopathy, lumbar region (principal); M25.551 Pain in right hip | CPT/HCPCS: 99202 ==

== ENCOUNTER 2024-01-27 06:23 | Outpatient (REF) | payer MEDICARE, MEDICAID, SELFPAY ==
--- NOTE | ~2024-01-27 | FL_ITS ---
EXAMINATION: FLUORO GUIDANCE IN TREATMENT ROOM CLINICAL INFORMATION: Pain in right hip. Right hip injection. COMPARISON: None available. TECHNIQUE: Fluoroscopy supervised by: Dr. Glenn Waterman. Fluoroscopy time: 0.2 minutes. Cumulative Dose: 7.59 mGy. DAP: 0.0892 mGy-m2 (milligray-meter squared). Images: 2. FINDINGS: A needle overlies the right hip joint with a small amount of intra-articular contrast seen. FL/FL guidance in treatment room IMPRESSION: Fluoroscopy during procedure. Please see procedure report for additional information. Electronically signed by: Lefty Gomez MD 03/24/2024 04:18 PM [facility]
== END 2024-01-27 06:24 | disposition home or self-care (01) ==
LOC: CF 06:23
PROVIDERS: Visit Provider Anesthesiology
DX: M25.551 Pain in right hip (principal)
CPT/HCPCS: 20610; J2003; J2795; J3301; Q9967

== ENCOUNTER 2024-01-27 14:15 | Outpatient (AMB) | payer MEDICARE, MEDICAID, SELFPAY ==
--- NOTE | 2024-01-27 14:22 | A.OFFVIS_ITS ---
Vital Signs 01/27/24 14:23 01/27/24 14:51 BP 116/63 111/64 Blood Pressure Location Rt brachial Rt brachial Position Sitting Sitting Pulse 66 63 Pulse Source Pulse Oximeter Pulse Oximeter Pulse Oximetry (%) 98 97 Oxygen Delivery Method Room Air Room Air Intake Visit Reasons: RIGHT INTRA-ARTICULAR HIP INJECTION Allergies No Known Allergies Allergy (Verified 12/03/23 14:28) PFSH Medical History DDD (degenerative disc disease), lumbar Sleep apnea Asthma Elevated cholesterol HTN (hypertension) Gout Surgical History Hx of vasectomy H/O colonoscopy Social History Alcohol intake: former Patient Tobacco Use Status: Former Tobacco user Tobacco use type: Cigarette Cigarettes Per Day: 25 Years Smoked: 10 Physical Exam Vital Signs: Last Vital Signs Pulse 66 01/27/24 14:23 BP 116/63 01/27/24 14:23 Pulse Ox 98 01/27/24 14:23 Oxygen Delivery Method Room Air 01/27/24 14:23 Assessment & Plan Assessment & Plan (1) Right hip pain: Code(s): M25.551 - Pain in right hip Category: Medical Plan: right Intra-articular hip injection Informed consent was explained to the patient. All risks and benefits were explained. All questions were explained and answered.? The patient was taken inside of the operating room where he was positioned on the left lateral decubitus on operating table..? Time-out was performed delineating patient's name and date of , correct site, side, the nature of the procedure, patient's allergy, preoperative a ntibiotic if needed, need for DVT prophylaxis..? All operating room staff was participating in OR time-out procedure. right hip area of the patient was prepped with ChloraPrep and draped with sterile towels.? C-arm was brought over the operating field and picture of left and right lateral views of the bilateral hip joints were delineated on the screen.? The smaller joint silhouette was chosen as the target. Projection of the right trochanter to the skin was chosen as the initial needle insertion point.? After that the skin and subcutaneous tissues was anesthetized with 2% lidocaine 2.5 mL.? 22 gauge 5 in long needle was inserted through the skin and started to advance to the joint space under lateral and anterior posterior view.? When needle entered the capsule of the joint small amount of the contrast was injected delineating intra-articular space.? After that treatment solution containing ropivacaine 0.5% 3 mls mixed with 30 mg of Kenalog was injected into the joint . The needle was withdrawn sterile Band-Aid was applied. The patient tolerated procedure well. Plan David is a very pleasant 63-year-old male who presented to the office today for evaluation management of his right hip pain Recent x-ray reviewed, results as per above Patient has exhausted conservative therapy including PT, home exercise program, wvke-nep-npgaivo medications, nonsteroidal anti medications, heat and ice all without improvement of symptoms Will schedule for fluoroscopy guided right intra-articular hip injection with local anesthetic. All questions and concerns were answered, patient agrees with plan. Follow up after injection, sooner if needed Coding Level of Care Code Procedure Only Diagnoses Right hip pain M25.551
[2024-01-27 14:23] VITALS: BP 116/63; PULSE 66; O2SAT 98
[2024-01-27 14:51] VITALS: BP 111/64; PULSE 63; O2SAT 97
== END 2024-01-27 14:53 | disposition home or self-care (01) ==
LOC: HO.PMCPRC 14:16
PROVIDERS: PCP Internal Medicine; Visit Provider Anesthesiology
DX: M25.551 Pain in right hip (principal)
CPT/HCPCS: 20610; 77002

== ENCOUNTER 2024-02-11 14:29 | Outpatient (AMB) | payer MEDICARE, MEDICAID, SELFPAY ==
[2024-02-11 14:47] VITALS: BP 125/76; PULSE 77; O2SAT 96; BMI 47.4
--- NOTE | 2024-02-11 14:47 | A.OFFVIS_ITS ---
Vital Signs 02/11/24 14:47 Height 5 ft 6 in Weight 294 lb BMI 47.4 BP 125/76 Blood Pressure Location Rt brachial Position Sitting Pulse 77 Pulse Source Pulse Oximeter Pulse Oximetry (%) 96 Oxygen Delivery Method Room Air Intake Visit Reasons: RIGHT INTRA-ARTICULAR HIP INJECTION Intake Note: Pain today 0/10 Stonemason Apprentice Required: No Accompanied by: Self / Same As Patient Allergies No Known Allergies Allergy (Verified 02/11/24 14:47) HPI Comments Details: Patient presents back to the office today for follow-up, 1 month status post right intra-articular hip injection He reports 100% pain relief with improvement in functional and mobility since the injection. Denies any untoward effects Denies changes in diagnoses, allergies, medications Prior: David is a very pleasant 63-year-old male who presents the office today for evaluation management of his chronic right hip pain Patient endorses right hip pain rated today as 8/10, constant daily pain Denies inciting injury, fall, trauma Pain is worse with sitting, standing and walking Denies radiation of the pain down the lower extremity. Does endorse some pain in the right groin Pain with internal/external rotation of the right hip Denies lower back pain Patient completed physical therapy < 1 year ago without improvement of his symptoms. He continues with home exercise program He has tried ice, heat, nonsteroidal anti-inflammatory medications and Tylenol without improvement of his symptoms Denies numbness, tingling, weakness or shooting pains down either lower extremity Denies red flag symptoms including new loss of bowel, bladder or saddle anesthes ia. Ambulates with the use of a cane In terms of muscle damage condition is described as dull, sore, aching, tight, squeezing Pain is negatively impacting patient's enjoyment of life, general activity, work, sleep, recreational activities Denies current use of anticoagulants Denies implantable devices, pacemaker defibrillator Denies current use of nicotine, tobacco, alcohol or illicit substances [facility] Medical History DDD (degenerative disc disease), lumbar Sleep apnea Asthma Elevated cholesterol HTN (hypertension) Gout Surgical History Hx of vasectomy H/O colonoscopy Social History Alcohol intake: former Patient Tobacco Use Status: Former Tobacco user Tobacco use type: Cigarette Cigarettes Per Day: 25 Years Smoked: 10 Review of Systems Const All systems reviewed & are unremarkable except as noted in HPI and below Physical Exam Vital Signs: Last Vital Signs Pulse 77 02/11/24 14:47 BP 125/76 02/11/24 14:47 Pulse Ox 96 02/11/24 14:47 Oxygen Delivery Method Room Air 02/11/24 14:47 BMI result Body Mass Index 47.4 General: awake, alert, oriented. Answers questions appropriately. Fully engaged in examination. Skin: warm, dry, intact HEENT: Normocephalic. Hearing intact. Cardiac: External chest normal in appearance. Respiratory: No cough, audible wheezing or stridor. Abdomen: without gross distension. MS: No obvious swelling or deformities. Neurological: Oriented to person, place, time and situation. Thought process intact. Ambulates with the use of a cane Psychiatric: Appropriate mood and affect. Good judgment and insight. Results Reviewed Results Reviewed: 08/2023 XR/XR hip BI w PEL1V FINDINGS: No fracture or malalignment. There is mild narrowing of the right hip joint with small marginal osteophytes along the superior acetabulum. The left hip appears normal. IMPRESSION: Mild right hip osteoarthritis. Assessment & Plan Assessment & Plan (1) Right hip pain: Code(s): M25.551 - Pain in right hip Category: Medical Plan David presented back to the office today for follow-up, 1 month status post intra-articular right hip injection Reports 100% pain relief since the injection with no untoward effects All questions and concerns were answered, patient agrees with plan. Follow up when pain returns, sooner if needed Coding Level of Care Code Est Pt Level 3 (92486) Complex EM visit Add On G2211 Diagnoses Right hip pain M25.551
== END 2024-02-11 15:07 | disposition home or self-care (01) ==
PROVIDERS: PCP Internal Medicine; Visit Provider Registered Nurse Emergency
DX: M25.551 Pain in right hip (principal)
CPT/HCPCS: 99213; G2211

== ENCOUNTER → 2024-02-11 14:29 | Outpatient (BNVA) | payer MEDICARE, MEDICAID, SELFPAY | PROVIDERS: PCP Internal Medicine; Visit Provider Registered Nurse Emergency | DX: M25.551 Pain in right hip (principal) | CPT/HCPCS: 99212 ==

== ENCOUNTER 2024-08-25 09:21 | Outpatient (REF) | payer MEDICARE, MEDICAID, SELFPAY ==
--- OUTSIDE RECORDS SUMMARY | 2024-08-25 09:34 | XMS_ITS | Clinical Summary ---
Author Organization [facility] Address [address] [place] [address] Care Team Providers Care 3D Designer Name Role Phone Naon Cullen DMD Primary Care Provider [phone] Source Comments PLEASE NOTE, if this patient is a minor, it may be UNLAWFUL to discuss sensitive information that is contained in these records (such as FAMILY PLANNING, MENTAL HEALTH or SUBSTANCE ABUSE) with the minor patient's parent or other person without the patient's specific authorization.[facility] Social History Tobacco Use Types Packs/Day Years Used Date Smoking Tobacco: Never Assessed Social Connections Answer Date Recorded Social Connections and Isolation 0 2021 Financial Resource Strain Answer Date R ecorded Financial Resource Strain 0 2020 Stress Answer Date Recorded Stress 0 2021 Physical Activity Answer Date Recorded Physical Activity 0 2021 Food Insecurity Answer Date Recorded Food 0 2021 Transportation Needs Answer Date Record ed Transportation 0 2021 Housing Stability Answer Date Recorded Housing 0 2021 Safety and Environment Answer Date Davidson rded Safety 0 2021 Utilities Answer Date Recorded Utilities 0 2021 Employment Answer Date Recorded Employment 0 2021 Sex and Gender Information Value Date Recorded Sex Assigned at Not on file Legal Sex Male 10:10 AM PDT Gender Identity Not on file Sexual Orientation Not on file Plan of Treatment Not on file [place] Member Subscriber Plan / Payer (Ef fective 2015-Present) Name:David Toney Relation to Subscriber:Self Name:David Toney Payer ID:[id number] Group ID:Not on file Type:Medicaid Address: [place] [id number] [facility] [place] [address] Care Teams 3D Designer Relationship Specialty Start Date End Date Nano Cullen DMD [address] [place] [address] PCP - General 05/05/20
--- OUTSIDE RECORDS SUMMARY | 2024-08-25 09:34 | XMS_ITS | Encounter Summary ---
Author Organization [employer] Address [address] [place] [address] [address] [place] [address] Care Team Providers Care Customs Compliance Manager Name Role Phone Antonella Gerard MD Primary Care Provider + Reason for Visit * Reason Onset Date Comments chart prep 08/24/2024 Encounter Details Date Type Department Care Team ([facility] st Contact Info) Description 08/24/2024 Telephone [facility] [address] [place], [place] [phone] Antonella Gerard MD [address] [place] [address] chart prep Social History Tobacco Use Types Packs/Day Years Used Date Smoking Tobacco: Never Passive Smoke Exposure: Never Smokeless Tobacco: Never Alcohol Use Standard Drinks/Week Comments Never 0 (1 standard drink = 0.6 oz pur e alcohol) Housing Stability Answer Date Recorded What is your housing situation today? I have ej goins 12/17/[address] you li ve. Do you have problems with any of the following? None of the above 12/17/2022 Food Insecurity Answer Date Recorded Within the past 12 months, y ou worried that your food would run out before you got money to buy more: Sometimes True 2024 Within the past 12 months,th e food you bought just didn't last and you didn't have enough money to get more: Sometimes True 03/30/2024 Transportation Answer Date Recorded In the past 12 months, has l ack of transportation kept you from medical appts, meetings, work or from getting things needed for daily living? No 12/17/2022 Utilities Answer Date Recorded In the past 12 months, has t he electric, gas, oil or water [employer] threatened to shut off services in your home? No 12/17/2022 Depression Answer Date Recorded Patient Health Questionnaire-2 Score 0 08/25/2024 Internet Access Answer Date Recorded Internet Access Q1 Yes 03/30/2024 Internet Access Q2 Not on file 03/30/2024 Sex and Gender Information Value Date Recorded Sex Assigned at Male 12/24/2021 10:30 AM EDT Legal Sex Male 10:30 AM EDT Gender Identity Male 12/24/2021 10:30 AM EDT Sexual Orientation Straight 12/24/2021 10 :30 AM EDT documented as of this encounter Miscellaneous Notes * Telephone Encounter - Neela Lala [place] - 08/24/2024 9:42 AM EDT Chart Prep Labs: not applicable Images: not applicable Referrals: not applicable Vaccines due: Covid, Flu, and RSV Screenings: not applicable Overdue care gaps: PHQ-9 and SONIA-7 documented in this encounter Plan of Treatment Upcoming Encounters Date Type Department Care Team (Late st Contact Info) Description 08/30/2024 8:00 AM EDT Office Visit [facility] [address] [place] [address] Alexei Padilla, DDS [address] [place] [address] 09/08/2024 8:00 AM EDT Office Visit [facility] [address] [place] [address] Abundio Siegel, HATTIE [address] [place] [address] 11/17/2024 8:00 AM EDT Office Visit [facility] [address] [place] [address] Nona Acuna [address] [place] [address] documented as of this encounter Visit Diagnoses Not on filedocumented in this encounter Care Teams Customs Compliance Manager Relationship Specialty Start Date End Date Antonella Gerard MD [address] [place] [id number] PCP - General Family Medicine 02/24/18 documented as of this encounter
[2024-08-25 11:57] LABS: Hemoglobin A1C 137.5319 umol/L; Total Hemoglobin (HGBA1C) 3650.9583 umol/L
[2024-08-25 12:36] LABS: Alanine Aminotransferase 32 U/L (0-40); Albumin Level 4.4 g/dL (3.5-5.0); Alkaline Phosphatase 63 U/L (39-117); Anion Gap 13 (12-20); Aspartate Amino Transferase 27 U/L (5-37); Blood Urea Nitrogen 22 mg/dL (9-16); Calcium 9.0 mg/dL (8.4-10.2); Carbon Dioxide 23 mmol/L (22-29); Chloride 106 mmol/L (96-108); Cholesterol 158 mg/dL (<200); Estimated Glomerular Filt Rate > 60; HDL Cholesterol 36 mg/dL (>40); Potassium 4.4 mmol/L (3.3-5.1); Sodium 138 mmol/L (135-145); Total Protein 7.6 g/dL (6.5-8.0); Triglycerides 104 mg/dL (<150)
[2024-08-25 12:55] LABS: Reflex LDLD? No
[2024-08-26 16:48] LABS: HCV Log PCR <1.18 NOT DETECTED Log IU/mL (NOT DETECTED); HepC Viral Load <15 NOT DETECTED IU/mL (NOT DETECTED)
== END 2024-08-25 09:22 | disposition home or self-care (01) ==
LOC: HO.HHCL 09:21
PROVIDERS: PCP Internal Medicine; Visit Provider Internal Medicine
DX: I10 Essential (primary) hypertension (principal); E66.813 Obesity, class 3; Z68.41 Body mass index [BMI] 40.0-44.9, adult; R73.9 Hyperglycemia, unspecified
CPT/HCPCS: 36415; 80053; 80061; 83036; 84443; 87522

== ENCOUNTER 2024-12-31 15:09 | Outpatient (AMB) | payer MEDICARE, MEDICAID, SELFPAY ==
[2024-12-31 15:12] VITALS: BP 133/77; PULSE 78; RESP 16; O2SAT 95; BMI 48.1
--- NOTE | 2024-12-31 15:12 | A.OFFVIS_ITS ---
Vital Signs 12/31/24 15:12 Height 5 ft 6 in Weight 298 lb BMI 48.1 BP 133/77 Blood Pressure Location Lt brachial Position Sitting Respiration 16 Pulse 78 Pulse Source Pulse Oximeter Pulse Oximetry (%) 95 Oxygen Delivery Method Room Air Intake Visit Reasons: RIGHT HIP PAIN Funeral Home General Manager Required: No Accompanied by: Life Partner Allergies No Known Allergies Allergy (Verified 12/31/24 15:19) HPI Comments Details: The patient is a 64-year-old male presenting with right hip pain. Chronic right hip pain, with initial relief following an injection administered approximately 1 year ago with good relief. The pain has since recurred, described as shifting around the hip and sometimes felt anteriorly. Patient would like to repeat the injection A referral to orthopedics was discussed for persistent pain, with potential consideration for joint replacement if necessary. Current pain management includes naproxen and ibuprofen, with concerns about prolonged use. Obesity is identified as exacerbating the hip pain due to increased joint stress , and exercise is limited by pain, complicating weight management. - Onset: Years - Quality: Pain moves around the hip, sometimes felt in the front. - Exacerbating factors: Movement of the hip. - Relieving factors: Previous injection provided relief for two to four months. - Affect: Pain impacts daily activities and mood due to persistent discomfort. - Analgesia: Currently using naproxen and ibuprofen for pain relief. - Adverse Effects: Concerns about long-term use of painkillers. - Activities of Daily Living: Pain limits exercise, complicating weight management. [facility] Medical History DDD (degenerative disc disease), lumbar Sleep apnea Asthma Elevated cholesterol HTN (hypertension) Gout Surgical History Hx of vasectomy H/O colonoscopy Social History Alcohol intake: former Patient Tobacco Use Status: Former Tobacco user Tobacco use type: Cigarette Cigarettes Per Day: 25 Years Smoked: 10 Review of Systems Narrative - Musculoskeletal: Reports hip pain with movement. Physical Exam Exam Exam: General: awake, alert, oriented. Answers questions appropriately. Fully engaged in examination. Skin: warm, dry, intact HEENT: Normocephalic. Hearing intact. Cardiac: External chest normal in appearance. Respiratory: No cough, audible wheezing or stridor. Abdomen: without gross distension. MS: No obvious swelling or deformities. Right hip: Pain with internal/external rotation Neurological: Oriented to person, place, time and situation. Thought process intact. Ambulates with the use of a cane Psychiatric: Appropriate mood and affect. Good judgment and insight. Vital Signs: Last Vital Signs Pulse 78 12/31/24 15:12 Resp 16 12/31/24 15:12 BP 133/77 12/31/24 15:12 Pulse Ox 95 12/31/24 15:12 Oxygen Delivery Method Room Air 12/31/24 15:12 BMI result Body Mass Index 48.1 Results Reviewed Results Reviewed: 08/2023 XR/XR hip BI w PEL1V FINDINGS: No fracture or malalignment. There is mild narrowing of the right hip joint with small marginal osteophytes along the superior acetabulum. The left hip appears normal. IMPRESSION: Mild right hip osteoarthritis. Assessment & Plan Assessment & Plan (1) Right hip pain: Code(s): M25.551 - Pain in right hip Category: Medical Plan The plan involves scheduling another hip injection for pain relief, subject to insurance approval. If pain persists, a referral to orthopedics will be made to explore the option of joint replacement surgery. The patient is encouraged to discuss weight management with their primary care provider, as obesity is exacerbating the hip pain. Patient was informed and verbally consented to the use of an ambient scribe for clinic note documentation during this visit. Patient Instructions: - Schedule the hip injection once insurance approval is obtained. - Follow up with the primary care physician for weight management advice. - Return for a follow-up appointment one month after the injection. Coding Level of Care Code Est Pt Level 3 (81465) Complex EM visit Add On G2211 Diagnoses Right hip pain M25.551
--- OUTSIDE RECORDS SUMMARY | 2024-12-31 16:20 | XMS_ITS | Encounter Summary ---
Author Organization [employer] Address [address] [place] [address] Care Team Providers Care Rheumatology Specialist Name Role Phone Antonella Gerard MD Primary Care Provider + Reason for Visit * Reason Comments Med Refill Encounter Details Date Type Department Care Team ([facility] st Contact Info) Description 10/13/2024 Refill [facility] [address] [place], [place] [phone] Antonella Gerard MD [address] [place] [address] Social History Tobacco Use Types Packs/Day Years Used Date Smoking Tobacco: Never Passive Smoke Exposure: Never Smokeless Tobacco: Never Alcohol Use Standard Drinks/Week Comments Never 0 (1 standard drink = 0.6 oz pur e alcohol) Housing Stability Answer Date Recorded What is your housing situation today? I have ejmarvin goins 12/17/[address] you [...] t he electric, gas, oil or water company threatened to shut off services in your [...] AM EDT documented as of this encounter Plan of Treatment Not on file documented as of this encounter Visit Diagnoses Not on filedocumented in this encounter Care Teams Rheumatology Specialist Relationship Specialty Start Date End Date Antonella Gerard MD [address] [place] [id number] PCP - General Family Medicine 02/24/18 documented as of this encounter
--- OUTSIDE RECORDS SUMMARY | 2024-12-31 16:21 | XMS_ITS | Encounter Summary ---
Author Organization [employer] Address 75 [facility] 7t [place] [address] Care Team Providers Care Core Inspector Name Role Phone Antonella Gerard MD Primary Care Provider + Encounter Details Date Type Department Care Team ([facility] st Contact Info) Description 06/28/[address] [facility] MED & PEDS [address] [place] [address] Aide Santillan Social History Tobacco Use Types Packs/Day Years [...] Date Recorded Patient Health Questionnaire-2 Score 0 12/17/2022 Internet Access Answer Date Recorded Internet Access [...] on file documented as of this encounter Procedures Procedure Name Priority Date/Time Associated Diagnosis Comments COLONOSCOPY Routine 05/03/2022 10:57 AM EST documented in this encounter Results * Hm Colonoscopy (05/03/2022 10:57 AM EST) Colonoscopy Normal Normal Narrative Aide Santillan - 05/03/2022 10:57 AM EST Recommended 10 years . see external hospital admission note on 05/03/2022 us Historical Provider HEALTH MAINTENANCE Edited Result - Final documented in this encounter Visit Diagnoses Not on filedocumented in this encounter Care Teams Core Inspector Relationship Specialty Start Date End Date Antonella Gerard MD [address] [place] [address] PCP - General Family Medicine 02/24/18 documented as of this encounter
--- OUTSIDE RECORDS SUMMARY | 2024-12-31 16:21 | XMS_ITS | Encounter Summary ---
Author Organization [employer] Address 75 [facility] 7t [place] [address] Care Team Providers Care Spanish Language Lecturer Name Role Phone Antonella Gerard MD Primary Care Provider + Reason for Visit * Reason Comments Med Refill Encounter Details Date Type Department Care Team ([facility] st Contact Info) Description 07/26/2024 Refill [facility] MEDICINE [address] [place], [place] [phone] Antonella Gerard MD [address] [place], [place] [phone] Primary hypertension Social History Tobacco Use Types Packs/Day Years [...] documented as of this encounter Visit Diagnoses Diagnosis Primary hypertension Unspecified essential hypertension documented in this encounter Care Teams Spanish Language Lecturer Relationship Specialty Start Date End Date Antonella Gerard MD [address] [place] [address] PCP - General Family Medicine 02/24/18 documented as of this encounter
--- OUTSIDE RECORDS SUMMARY | 2024-12-31 16:21 | XMS_ITS | Encounter Summary ---
Author Organization [employer] Address 75 [facility] 7t [place] [address] Care Team Providers Care Drug And Alcohol Counsellor Name Role Phone Antonella Gerard MD Primary Care Provider + Reason for Visit * Reason Comments Med Refill Encounter Details Date Type Department Care Team ([facility] st Contact Info) Description 04/12/2024 Refill [facility] MEDICINE [address] [place], [place] [phone] Antonella Gerard MD [address] [place] [address] Social History Tobacco Use Types Packs/Day Years [...] on filedocumented in this encounter Care Teams Drug And Alcohol Counsellor Relationship Specialty Start Date End Date Antonella Gerard MD [address] [place] [phone] PCP - General Family Medicine 02/24/18 documented as of this encounter
--- OUTSIDE RECORDS SUMMARY | 2024-12-31 16:21 | XMS_ITS | Encounter Summary ---
Author Organization [employer] Address 75 [facility] 7t [place] [address] Care Team Providers Care Respiratory Supervisor Name Role Phone Antonella Gerard MD Primary Care Provider + Encounter Details Date Type Department Care Team (Late st Contact Info) Description 07/15/2022 Orders Only [facility] ADULT DENTAL [address] [place] [address] Pinky Lopez DDS [address] [place] [address] Social History Tobacco Use Types Packs/Day Years Used Date Smoking Tobacco: Never Passive Smoke Exposure: Never Smokeless Tobacco: Never Sex and Gender Information Value Date Recorded Sex Assigned at Male 12/24/2021 10:30 AM EDT Legal Sex Male 10:30 AM EDT Gender Identity Male 12/24/2021 10:30 AM EDT Sexual Orientation Straight 12/24/2021 10 :30 AM EDT COVID-19 Exposure Response Date Recorded In the last 10 days, have yo u been in contact with someone who was confirmed or suspected to have Coronavirus/COVID-19? No / Unsure 06/21/2022 12:32 PM EDT documented as of this encounter Plan of Treatment Not on file documented as of this encounter Visit Diagnoses Not on filedocumented in this encounter Care Teams Respiratory Supervisor Relationship Specialty Start Date End Date Antonella Gerard MD [address] [place] [address] PCP - General Family Medicine 02/24/18 documented as of this encounter
--- OUTSIDE RECORDS SUMMARY | 2024-12-31 16:21 | XMS_ITS | Encounter Summary ---
Author Organization [employer] Address 75 [facility] 7t [place] [address] Care Team Providers Care Clinical Informatics Educator Name Role Phone Antonella Gerard MD Primary Care Provider + Encounter Details Date Type Department Care Team (Late st Contact Info) Description 09/26/2022 Orders Only [facility] MEDICINE [address] [place], [place] [phone] Shyann Golden RN [address] [place] [address] Essential hypertension; Bilateral hip joint arthritis Social History Tobacco Use Types Packs/Day Years Used Date Smoking Tobacco: Never Passive Smoke Exposure: Never Smokeless Tobacco: Never Sex and Gender Information Value Date Recorded Sex Assigned at Male 12/24/2021 10:30 AM EDT Legal Sex Male 10:30 AM EDT Gender Identity Male 12/24/2021 10:30 AM EDT Sexual Orientation Straight 12/24/2021 10 :30 AM EDT documented as of this encounter Plan of Treatment Scheduled Orders Name Type Priority Associated Diagnoses Orde r Schedule Vitamin D, 25-Hydroxy, Total, Immunoassay Lab Routine Bilateral hip joint arthritis Expected: 09/26/2022 (Approximate), Expires: 09/27/2023 TSH W/Reflex to FT4 Lab Routine Essential hypertension Expected: 09/26/2022 (Approximate), Expires: 09/27/2023 Basic Metabolic Panel Lab Routine Essential hypertension Expected: 09/26/2022 (Approximate), Expires: 09/27/2023 Lipid Panel with Reflex to Direct LDL Lab Routine Essential hypertension Expected: 09/26/2022 (Approximate), Expires: 09/27/2023 documented as of this encounter Visit Diagnoses Diagnosis Essential hypertension Unspecified essential hypertension Bilateral hip joint arthritis documented in this encounter Care Teams Clinical Informatics Educator Relationship Specialty Start Date End Date Antonella Gerard MD [address] [place] [address] PCP - General Family Medicine 02/24/18 documented as of this encounter
--- OUTSIDE RECORDS SUMMARY | 2024-12-31 16:21 | XMS_ITS | Encounter Summary ---
Author Organization [employer] Address 75 [facility] 7t [place] [address] Care Team Providers Care Activities Therapist Name Role Phone Antonella Gerard MD Primary Care Provider + Encounter Details Date Type Department Care Team ([facility] st Contact Info) Description 04/09/2022 Orders Only [facility] MED & PEDS [address] [place] [address] Aurora Lozano LPN Social History Tobacco Use Types Packs/Day Years Used Date Smoking Tobacco: Never Assessed Sex and Gender Information Value Date Recorded Sex Assigned at Male 12/24/2021 10:30 AM EDT Legal Sex Male 10:30 AM EDT Gender Identity Male 12/24/2021 10:30 AM EDT Sexual Orientation Straight 12/24/2021 10 :30 AM EDT documented as of this encounter Miscellaneous Notes * Result Encounter Note - ELENITA Morris - 04/09/2022 10:17 AM EST C-scope 05/03/22 w/ hyperplastic polyp, repeat 10 years documented in this encounter Plan of Treatment Not on file documented as of this encounter Procedures Procedure Name Priority Date/Time Associated Diagnosis Comments HEMATOXYLIN AND EOSIN STAIN Routine 05/03/2022 11:50 AM EST documented in this encounter Results * Hematoxylin and Eosin Stain (05/03/2022 11:50 AM EST) 05/03/2022 11:5 0 AM EST 05/03/2022 12:27 PM EST Narrative [facility] - 05/06/2022 1:57 PM EDT ----- ------- Name: David Toney Age/Sex: 62/M : 1960 Unit#: [id number] Attend Dr: Kamlesh Mcgee MD Re05/03/22 Status: [facility] Location: [facility] Disch: ----- ------- SPEC : [id number] RECD: 05/03/22-1227 STATUS: ROSELINE VAMSI NUM: [id number] MILES: 05/03/22-[address] [facility] [address]: Kamlesh Mcgee MD ENTERED: 05/03/22-1316 SP TYPE: Surgical OTHR DR: Antonella Gerard MD ORDERED: HE Stain/6, Gross Micro L4/2 Diagnosis A. Colon, transverse, polyp: Colonic mucosa with no specific change; no adenomatous dysplasia. B. Colon, rectal polyp: Hyperplastic polyp. Clinical History Pre-Op Dx: Screening, hx of colon polyps Post-Op Dx: Diverticulosis, hemorrhoids, colon polyps Microscopic Description Microscopic sections reviewed. Material Received A. Transverse colon polyp B. Rectal polyp Gross Description Received in two parts. Part A: Received in formalin labeled Transverse colon polyp are two glistening, semitranslucent, soft, miller, irregular tissue fragments, measuring 0.2 and 0.3 cm. in greatest dimension, which are submitted in toto in a single cassette labeled A. Part B: Received in formalin labeled Rectal polyp is a 0.3 cm. in greatest dimension, glistening, semitranslucent, soft, miller-pink, papular tissue fragment, which is submitted in toto in a single cassette labeled Staci ROWELL Copies To: Antonella Gerard MD [address] [place] [phone] CONTINUED ON NEXT PAGE ----- ------- Name: David Toney Age/Sex: 62/M : 1960 Unit#: [id number] Attend Dr: Kamlesh Mcgee MD Re05/03/22 Status: [facility] Location: [facility] Disch: ----- ------- SPEC : [id number] RECD: 05/03/22-1227 STATUS: ROSELINE AGUSTIN NUM: [id number] MILES: 05/03/22-[address] [facility] [address]: Kamlesh Mcgee MD ENTERED: 05/03/22-131 SP TYPE: Surgical OTHR DR: Antonella Gerard MD ORDERED: HE Stain/6, Gross Micro L4/2 Copies To: (Continued) Kamlesh Mcgee MD [address] [place] [address] [place] [address] ----- ------- Signed (signature on file) Theresa Poncho 05/06/22 1357 ----- ------- END OF REPORT [facility] External Provider LAB BLO OD ORDERABLES Final Result [facility] [address] [place] [address] [phone] documented in this encounter Visit Diagnoses Not on filedocumented in this encounter Care Teams Activities Therapist Relationship Specialty Start Date End Date Antonella Gerard MD [address] [place] [phone] PCP - General Family Medicine 02/24/18 documented as of this encounter
--- OUTSIDE RECORDS SUMMARY | 2024-12-31 16:21 | XMS_ITS | Encounter Summary ---
Author Organization [employer] Address 75 [facility] 7t [place] [address] Care Team Providers Care Reroller Hand Name Role Phone Antonella Gerard MD Primary Care Provider + Reason for Visit * Reason Onset Date Comments Med Refill 06/03/2024 Encounter Details Date Type Department Care Team (Late st Contact Info) Description 06/03/2024 Telephone [facility] MEDICINE [address] [place], [place] [phone] Antonella Gerard MD [address] [place], [place] [phone] Med Refill Social History Tobacco Use Types Packs/Day Years [...] encounter Miscellaneous Notes * Telephone Encounter - Aurora Lozano LPN - 06/03/2024 3:09 PM EDT Medication was sent to [facility] #[id number] on 05/31/24 #90 with 1 refill. * Telephone Encounter - Thomas Coffey - 06/03/2024 3:06 PM EDT TC from pt requesting medication refill. Medications needing refill : lisinopril-hydroCHLOROthiazide 20-12.5 MG tablet To be sent to: [facility][id number] - [place], [place] - [address] documented in this encounter Plan of Treatment Not on file documented as of this encounter Visit Diagnoses Not on filedocumented in this encounter Care Teams Reroller Hand Relationship Specialty Start Date End Date Antonella Gerard MD [address] [place] [address] PCP - General Family Medicine 02/24/18 documented as of this encounter
--- OUTSIDE RECORDS SUMMARY | 2024-12-31 16:21 | XMS_ITS | Encounter Summary ---
Author Organization [employer] Address 75 [facility] 7t [place] [address] Care Team Providers Care Camera Prototyping Engineer Name Role Phone Antonella Gerard MD Primary Care Provider + Reason for Visit * Reason Onset Date Comments Med Refill 02/24/2024 Encounter Details Date Type Department Care Team (Late st Contact Info) Description 02/24/2024 Telephone [facility] MEDICINE [address] [place], [place] [phone] Antonella Gerard MD [address] [place], [place] [phone] Med Refill Social History Tobacco Use Types [...] before you got money to buy more: Never True 12/17/2022 Within the past 12 months,th e food you bought just didn't last and you didn't have enough money to get more: Never True Transportation Answer Date Recorded In the past [...] Recorded Patient Health Questionnaire-2 Score 0 12/17/2022 Sex and Gender Information Value Date Recorded Sex Assigned at Male 12/24/2021 10:30 AM EDT Legal Sex Male 10:30 AM EDT Gender Identity Male 12/24/2021 10:30 AM EDT Sexual Orientation Straight 12/24/2021 10 :30 AM EDT documented as of this encounter Miscellaneous Notes * Telephone Encounter - Aurora Lozano LPN - 03/01/2024 1:16 PM EST Medication pended to PCP. * Telephone Encounter - Kory Yousif - 03/01/2024 1:12 PM EST Sudheer confirmed did not receive script . Please refax sildenafil (Viagra) 100 MG tablet * Telephone Encounter - Aurora Lozano LPN - 02/24/2024 11:09 AM EST Medications were sent to [facility] #[id number] on 02/23/24. * Telephone Encounter - Denise Ceja - 02/24/2024 10:59 AM EST TC from pt requesting medication refill. Medications needing refill : sildenafil (Viagra) 100 MG tablet albuterol (2.5 MG/3ML) 0.083% nebulizer solution To be sent to: [facility] #[id number] documented in this encounter Plan of Treatment Not on file documented as of this encounter Visit Diagnoses Not on filedocumented in this encounter Care Teams Camera Prototyping Engineer Relationship Specialty Start Date End Date Antonella Gerard MD [address] [place] [id number] PCP - General Family Medicine 02/24/18 documented as of this encounter
--- OUTSIDE RECORDS SUMMARY | 2024-12-31 16:21 | XMS_ITS | Encounter Summary ---
Author Organization [employer] Address [address] [place] [address] 7 [place] [address] Care Team Providers Care Sole Layer Name Role Phone Antonella Gerard MD Primary Care Provider + Reason for Visit * Reason Comments Med Refill Encounter Details Date Type Department Care Team ([facility] st Contact Info) Description 07/03/2022 Refill [facility] MED & PEDS [address] [place], [place] [phone] Antonella Gerard MD [address] [place], [place] [phone] Allergic rhinitis, unspecified seasonality, unspecified trigger Social History Tobacco Use Types Packs/Day Years [...] as of this encounter Visit Diagnoses Diagnosis Allergic rhinitis, unspecified seasonality, unspecified trigger documented in this encounter Care Teams Sole Layer Relationship Specialty Start Date End Date Antonella Gerard MD [address] [place], [place] [phone] PCP - General Family Medicine 02/24/18 documented as of this encounter
--- OUTSIDE RECORDS SUMMARY | 2024-12-31 16:21 | XMS_ITS | Encounter Summary ---
Author Organization [employer] Address 75 [facility] 7t [place] [address] Care Team Providers Care Railroad Brake Repairer Name Role Phone Antonella Gerard MD Primary Care Provider + Reason for Visit * Reason Comments Med Refill Encounter Details Date Type Department Care Team ([facility] st Contact Info) Description 08/25/2024 Refill [facility] MEDICINE [address] [place], [place] [phone] Antonella Gerard MD [address] [place] [address] Social History Tobacco Use Types Packs/Day Years [...] AM EDT documented as of this encounter Functional Status * Question Answer Date of Assessment Author Feeling nervous, anxious, or on edge 0 08/25/2024 8:52 AM EDT Kristin Estrada MA Not being able to stop or co ntrol worrying 0 08/25/2024 8:52 AM EDT Kristin Estrada MA * Over the past 2 weeks, how often have you been bothered by any of the following problems? Question Answer Date of Assessment Author Little interest or pleasure in doing things Not at all 08/25/2024 8:52 AM EDT Kristin Estrada MA Feeling down, depressed, or hopeless Not at all 08/25/2024 8:52 AM EDT Kristin Estrada MA Patient Health Questionnaire-2 Score 0 08/25/2024 8:52 AM EDT Manda Estrada MA documented as of this encounter Plan of Treatment Not on file documented as of this encounter Visit Diagnoses Not on filedocumented in this encounter Care Teams Railroad Brake Repairer Relationship Specialty Start Date End Date Antonella Gerard MD [address] [place] [phone] PCP - General Family Medicine 02/24/18 documented as of this encounter
--- OUTSIDE RECORDS SUMMARY | 2024-12-31 16:21 | XMS_ITS | Encounter Summary ---
Author Organization [employer] Address 75 [facility] 7t [place] [address] Care Team Providers Care Chief Librarian Extension Department Name Role Phone Antonella Gerard MD Primary Care Provider + Reason for Visit * Reason Comments Med Refill Encounter Details Date Type Department Care Team ([facility] st Contact Info) Description 06/08/2024 Refill [facility] MEDICINE [address] [place], [place] [phone] Antonella Gerard MD [address] [place], [place] [phone] Primary hypertension Social History Tobacco Use Types [...] hypertension documented in this encounter Care Teams Chief Librarian Extension Department Relationship Specialty Start Date End Date Antonella Gerard MD [address] [place] [address] PCP - General Family Medicine 02/24/18 documented as of this encounter
--- OUTSIDE RECORDS SUMMARY | 2024-12-31 16:21 | XMS_ITS | Encounter Summary ---
Author Organization [employer] Address 75 [facility] 7t [place] [address] Care Team Providers Care Senior Marketing Analyst Name Role Phone Antonella Gerard MD Primary Care Provider + Encounter Details Date Type Department Care Team (Latest Contact Info) Description 05/21/2021 Abstract [facility] CONVERSIONS Dental, Provider, DDS Social History Tobacco Use Types Packs/Day Years [...] on filedocumented in this encounter Care Teams Senior Marketing Analyst Relationship Specialty Start Date End Date Antonella Gerard MD [address] [place] [address] PCP - General Family Medicine 02/24/18 documented as of this encounter
--- OUTSIDE RECORDS SUMMARY | 2024-12-31 16:21 | XMS_ITS | Encounter Summary ---
Author Organization [employer] Address 75 [facility] 7 [place] [address] Care Team Providers Care Reconditioning Associate Name Role Phone Antonella Gerard MD Primary Care Provider + Reason for Visit * Reason Onset Date Comments Med Refill 5000 boster toothpaste 07/08/2022 Encounter Details Date Type Department Care Team (Late st Contact Info) Description 07/08/2022 Refill [facility] DENTAL [address] [place], [place] [phone] Abundio Siegel, HATTIE [address] [place] [address] Social History Tobacco Use Types Packs/Day Years [...] PM EDT documented as of this encounter Miscellaneous Notes * Telephone Encounter - Avis Sagastume - 07/12/2022 3:52 PM EDT Patient called in stating that pharmacy needs a new script for his toothpaste. DR documented in this encounter Plan of Treatment Not on file documented as of this encounter Visit Diagnoses Not on filedocumented in this encounter Care Teams Reconditioning Associate Relationship Specialty Start Date End Date Antonella Gerard MD [address] [place] [address] PCP - General Family Medicine 02/24/18 documented as of this encounter
--- OUTSIDE RECORDS SUMMARY | 2024-12-31 16:21 | XMS_ITS | Encounter Summary ---
Author Organization [employer] Address 75 [facility] 7t [place] [address] Care Team Providers Care Rod Tape Operator Name Role Phone Antonella Gerard MD Primary Care Provider + Reason for Visit * Reason Onset Date Comments Dr. Siegel active request 03/30/2024 Encounter Details Date Type Department Care Team ([facility] st Contact Info) Description 03/30/2024 Telephone [facility] ADULT DENTAL [address] [place], [place] [phone] Alexei Padilla, KEERTHIS [address] [place] [address] Dr. Siegel active request Social History Tobacco Use Types Packs/Day Years [...] encounter Miscellaneous Notes * Telephone Encounter - Abundio Siegel DMD - 04/08/2024 9:02 AM EST Active request has been posted. Thanks * Telephone Encounter - Avis Sagastume - 03/30/2024 10:46 AM EST Patient called in to check in on status of RCT visit with Dr.. Padilla in [facility]. Dr. Siegel noted chart that patient was to see Dr. Padilla in [facility] but did not active request appt back in 11/2023. Reached out to [facility] and first front ventilator will be reaching out to patient more than likely by the end of the month to schedule appt with Dr. Padilla. documented in this encounter Plan of Treatment Not on file documented as of this encounter Visit Diagnoses Not on filedocumented in this encounter Care Teams Rod Tape Operator Relationship Specialty Start Date End Date Antonella Gerard MD [address] [place] [address] PCP - General Family Medicine 02/24/18 documented as of this encounter
--- OUTSIDE RECORDS SUMMARY | 2024-12-31 16:22 | XMS_ITS | Encounter Summary ---
Author Organization [employer] Address 75 [facility] 7 [place] [address] Care Team Providers Care Premium Cancellation Clerk Name Role Phone Antonella Gerard MD Primary Care Provider + Reason for Visit * Reason Onset Date Comments Med Refill 10/25/2022 Encounter Details Date Type Department Care Team (Late st Contact Info) Description 10/25/2022 Telephone [facility] MEDICINE [address] [place], [place] [phone] Antonella Gerard MD [address] [place] [address] Med Refill Social History Tobacco Use Types [...] Telephone Encounter - Aurora Lozano LPN - 10/25/2022 12:32 PM EDT Medication pended to PCP. * Telephone Encounter - Neha Chaney - 10/25/2022 12:13 PM EDT Tc from pt requesting med refill for medication sildenafil (Viagra) 100 MG tablet. documented in this encounter Plan of Treatment Not on file documented as of this encounter Visit Diagnoses Not on filedocumented in this encounter Care Teams Premium Cancellation Clerk Relationship Specialty Start Date End Date Antonella Gerard MD [address] [place] [address] PCP - General Family Medicine 02/24/18 documented as of this encounter
--- OUTSIDE RECORDS SUMMARY | 2024-12-31 16:22 | XMS_ITS | Encounter Summary ---
Author Organization [employer] Address 75 [facility] 7t [place] [address] Care Team Providers Care Registered Nurses Name Role Phone Antonella Gerard MD Primary Care Provider + Reason for Visit * Reason Comments Med Refill Encounter Details Date Type Department Care Team ([facility] st Contact Info) Description 09/11/2023 Refill [facility] MED & PEDS [address] [place], [place] [phone] Antonella Gerard MD [address] [place] [address] Primary hypertension Social History Tobacco Use Types Packs/Day Years Used Date Smoking Tobacco: Never Passive Smoke Exposure: Never Smokeless Tobacco: Never Housing Stability Answer Date Recorded What is [...] hypertension documented in this encounter Care Teams Registered Nurses Relationship Specialty Start Date End Date Antonella Gerard MD [address] [place] [address] PCP - General Family Medicine 02/24/18 documented as of this encounter
--- OUTSIDE RECORDS SUMMARY | 2024-12-31 16:22 | XMS_ITS | Encounter Summary ---
Author Organization [employer] Address [address] [facility] [address] [place] [address] Care Team Providers Care Fireproof Door Assembler Name Role Phone Antonella Gerard MD Primary Care Provider + Encounter Details Date Type Department Care Team (Late st Contact Info) Description 10/30/2022 Orders Only [facility] [address] [place] [address] Esmer Reeves LPN Social History Tobacco Use Types Packs/Day [...] on filedocumented in this encounter Care Teams Fireproof Door Assembler Relationship Specialty Start Date End Date Antonella Gerard MD [address] [place] [phone] PCP - General Family Medicine 02/24/18 documented as of this encounter
--- OUTSIDE RECORDS SUMMARY | 2024-12-31 16:22 | XMS_ITS | Clinical Summary ---
Author Organization [employer] Address [address] [facility] 7[address] [place] [address] Care Team Providers Care Water Systems Engineer Name Role Phone Antonella Gerard MD Primary Care Provider + Allergies No known active allergies Medications polyethylene glycol, PEG, 3350 (MiraLax) 17 GM/SCOOP powder 17 grams in 8-12 oz fluid like water at bedtime prn constipation 527 g 2 3 Active Sodium Fluoride (Sodium Fluoride 5000 Plus) 1.1 % cream APPLY 1 MG TO TEETH THREE TIMES DAILY 51 g 3 3 Active triamcinolone (Kenalog) 0.1 % ointment Apply topically 2 times daily. 30 g 3 3 Active loratadine (Claritin) 10 MG tablet TAKE 1 TABLET BY MOUTH EVERY DAY 90 tablet 4 Active fluticasone (Flonase) 50 MCG/ACT nasal sprayIndications :Viral upper respiratory tract infection,Allerg ic rhinitis, unspecified seasonality, unspecified trigger SHAKE LIQUID AND USE 1 TO 2 SPRAYS IN EACH NOSTRIL EVERY DAY NEEDED 48 g 1 4 Active Spacer/Aero-Hold ing Chambers ([facility]) deviceIndication s:Asthma, unspecified asthma severity, unspecified whether complicated, unspecified whether persistent USE DIRECTED WITH INHALER 1 each 4 Active Antacid Calcium 500 MG chewable tabletIndication s:Gastroesophage al reflux disease, unspecified whether esophagitis present CHEW AND SWALLOW 1 TABLET BY MOUTH THREE TIMES DAILY BEFORE MEALS NEEDED FOR HEARTBURN 90 tablet 3 5 Active cyclobenzaprine (Flexeril) 10 MG tablet Take 1 tablet (10 mg) by mouth if needed in the morning, at noon, and at bedtime for muscle spasms for up to 10 days. 30 tablet 5 Active Additional Information Patient not taking.Reported on 11/17/2024 Sodium Fluoride (PreviDent 5000 Booster Plus) 1.1 % paste Apply 1 Application. to teeth 2 times daily. 112 g 3 5 Active lisinopril-hydro CHLOROthiazide 20-12.5 MG tabletIndication s:Primary hypertension Take 1 tablet by mouth Once per day. 90 tablet 1 5 Active albuterol (2.5 MG/3ML) 0.083% nebulizer solutionIndicati ons:Mild intermittent asthma without complication USE 3 ML VIA NEBULIZER EVERY 6 HOURS 75 mL 3 5 Active albuterol 108 (90 Base) MCG/ACT inhalerIndicatio ns:Mild intermittent asthma without complication INHALE 2 PUFFS BY MOUTH EVERY 4 TO 6 HOURS NEEDED 8.5 g 2 5 Active sildenafil (Viagra) 100 MG tablet TAKE 1/2 TO 1 TABLET BY MOUTH EVERY DAY 1 HOUR BEFORE SEXUAL ACTIVITY NEEDED 10 tablet 5 5 Active allopurinol (Zyloprim) 300 MG tablet Take 1 tablet (300 mg) by mouth Once per day. 90 tablet 1 5 Active colchicine 0.6 MG tablet Take 1 tablet (0.6 mg) by mouth if needed in the morning, at noon, and at bedtime for muscle/joint pain (GOut attack). 30 tablet 5 026 Active celecoxib (CeleBREX) 200 MG capsule TAKE 1 CAPSULE(200 MG) BY MOUTH DAILY 90 capsule 5 Active Active Problems Problem Noted Date Diagnosed Date Dental plaque 11/17/2024 Class 3 severe obesity due t o excess calories with serious comorbidity and body mass index (BMI) of 40.0 to 44.9 in adult 08/25/2024 Assessment & Plan (08/25/2024 9:52 AM EDT): Patient has lost few pounds since last visit, I congratulated him for that. I discussed re weight reduction options including exercise, life style modifications, diet. Recommended to decrease soda and sugary beverage consumption, increase protein intake with meals (at least 1 portion of protein with each meal) to assist with satiety, increase dietary fiber Recommended at least 150 min/week of moderate intensity exercise. Declined/wants a referral to dietitian Excessive attrition of teeth, limited to enamel 11/11/2023 Obesity, morbid 11/05/2023 Assessment & Plan (11/05/2023 9:34 AM EDT): Discussed re weight reduction options including exercise, life style modifications, diet and referral to credit operations specialist. Recommended to decrease soda and sugary beverage consumption, increase protein intake with meals (at least 1 portion of protein with each meal) to assist with satiety, increase dietary fiber Recommended at least 150 min/week of moderate intensity exercise. 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 of way maintenance supervisor - advised to come to acupuncture [facility] today - f/u with right of way maintenance supervisor Dental root caries 05/01/2023 Dental calculus 02/12/2023 Missing teeth, acquired 02/12/2023 Localized gingival recession 02/12/2023 Dental caries 01/31/2023 Periodontal disease 01/31/2023 Colon polyposis 12/17/2022 Assessment & Plan (12/17/2022 10:16 AM EDT): Multiple hyperplastic polyps, next colonoscopy in 5 yrs Flexural eczema 12/17/2022 Assessment & Plan (12/17/2022 10:19 AM EDT): Unclear if he's limited psoriasis on both elbows, Use triamcinolone ointment Allergic rhinitis 12/17/2022 Diverticulosis of colon 12/17/2022 Assessment & Plan (12/17/2022 10:17 AM EDT): Pt seems asymptomatic, counseled to avoid constipation Internal hemorrhoids without complication 2022 Assessment & Plan (12/17/2022 10:20 AM EDT): Asymptomatic Avoid constipation and treat PRN Mild intermittent asthma without complication Assessment & Plan (08/25/2024 9:53 AM EDT): >>ASSESSMENT AND PLAN FOR ASTHMA WRITTEN ON 12/17/2022 10:18 AM BY LUL RAY Slightly exacerbated due to U URI Use albuterol inhaler with spacer Assessment & Plan (08/25/2024 9:52 AM EDT): Doing well, continue albuterol as needed only Patient is a non-smoker Advised regarding RSV vaccine at the retail pharmacy and will follow-up in the fall for COVID and influenza booster. Bilateral hip joint arthritis 07/15/2022 Assessment & Plan (07/15/2022 9:38 AM EDT): Significantly improving with ibuprofen. He is s/p PT last year Continue stretching exericses at home and reconsult PRN Vasculogenic erectile dysfunction 07/11/2022 Varicose veins of lower extremity 07/11/2022 Tinea corporis 07/11/2022 Onycholysis 07/11/2022 Nasal discharge 07/11/2022 Impacted cerumen 07/11/2022 Hyperglycemia 07/11/2022 Assessment & Plan (08/25/2024 9:51 AM EDT): Check labs, patient has IFG Assessment & Plan (12/17/2022 10:16 AM EDT): Pt has IFG, A1c is 5.8 Counseled re more frequent low calorie/carb meals. Encouraged physical activity as tolerated. FU with me Acute low back pain 07/11/2022 Dysfunction of eustachian tube 06/19/2022 Allergic rhinitis due to pollen 06/19/2022 Assessment & Plan (07/15/2022 9:40 AM EDT): Start using cetirizine 10mg + flonase qhs + Astelin in the morning he can use nasal saline during the day time take tylenol PRN pain or headache Bilateral tinnitus 06/19/2022 Gastroesophageal reflux disease 06/19/2022 Primary osteoarthritis of left knee 06/19/2022 Lumbar sprain 04/20/2018 Sensorineural hearing loss, bilateral 03/19/2017 Bilateral hearing loss 02/20/2017 Assessment & Plan (07/15/2022 9:49 AM EDT): Pt seen by audiology 1-2 years ago. Pt to call back audiology to fu on audiometry test. Chronic gouty arthritis 02/07/2016 Assessment & Plan (11/05/2023 10:16 AM EDT): - uric acid is controlled, pt has few gout attacks - continue Allopurinol and Naproxen PRN - pt has information regarding low purine diet, avoid alcohol Primary hypertension 02/07/2016 Assessment & Plan (08/25/2024 9:50 AM EDT): BP is a goal Controlled. Compliant w/meds Continue lisinopril/hctz same dose Counseled re low salt diet/increase moderate physical activity. Check home BP BIW and prn CP/HUTSON/HARRELL Non smoking patient. FU 6 m with labs Assessment & Plan (12/17/2022 10:09 AM EDT): BP is a goal Controlled. Compliant w/meds Continue lisinopril/hctz same dose Counseled re low salt diet/increase moderate physical activity. Check home BP BIW and prn CP/HUTSON/HARRELL Non smoking patient. FU 6 m Assessment & Plan (07/15/2022 9:48 AM EDT): Pt to check BP at home and FU with me in 3 months with labs Will check with [employer] company regarding CPAP as he needs to be back on CPAP to decrease morbidity and mortality Hyperlipidemia 02/07/2016 Assessment & Plan (08/25/2024 9:51 AM EDT): He has been off medication for more than a year. Check lipid profile and follow-up after results, if LDL is elevated, he may need to restart medications. Recommended moderate amount of exercise and increase consumption of fruit, vegetables, fish and high fiber foods. Should decrease consumption of highly saturated fats or trans fats. Assessment & Plan (11/05/2023 10:04 AM EDT): We discussed re rx options. Recommended moderate amount of exercise and increase consumption of fruit, vegetables, fish and high fiber foods. Should decrease consumption of highly saturated fats or trans fats. Will continue off medications and f/u lipids in one year Assessment & Plan (12/17/2022 10:11 AM EDT): LDL is at goal Dc Rx. He wants to be more strict with life style modifications. Recommended moderate amount of exercise and increased consumption of fruit, vegetables, fish and high fiber foods. We discussed about avoiding consumption of highly saturated fats or trans fats. He's not on any Rx at this time, LDL at goal is 100 FU lipids in 6m Obstructive sleep apnea syndrome 02/07/2016 Overview (11/05/2023): Sleep study at [facility] [place] 01/09/23: Severe CAROLE (AHI 59/h) Assessment & Plan (08/25/2024 9:54 AM EDT): Doing well with CPAP. Discussed with pt importance of using CPAP every night for at least 4 hours in order to decrease morbidity and mortality I congratulated him re weight loss and encouraged to continue healthy life style. Assessment & Plan (11/05/2023 10:14 AM EDT): - sleep study shows severe CAROLE, needs auto CPAP 8-12 - discussed with pt importance of using CPAP every night for at least 4 hours in order to decrease morbidity and mortality - advised regarding weight reduction Assessment & Plan (12/17/2022 9:41 AM EDT): Patient needs CPAP every night to decrease morbidity and mortality. Patient returned his CPAP to [employer] earlier this year as he was apparently going to be charged for supplies (last one was 2y ago and company requests a newer one). I will order new sleep study And fu after that. Unclear what was the charge that [employer] was sending at the time Assessment & Plan (07/15/2022 9:47 AM EDT): Sleep study done 1-2 years ago needs CPAP to decrease morbidity and mortality will contact [employer] company and try to workout the issue with charges to pt pt is off CPAP at this time. Primary gout 02/07/2016 Assessment & Plan (08/25/2024 9:52 AM EDT): No recent exacerbations. Check uric acid, continue to Perinal. Take naproxen as needed or colchicine for gout attacks Herniated lumbar intervertebral disc 02/07/2016 Resolved Problems Problem Noted Date Diagnosed Date Resolved Date Influenza A 04/13/2024 08/25/2024 Assessment & Plan (04/13/2024 9:37 AM EST): Drink plenty of fluids and rest Acetaminophen PRN Cough syrup PRN I renewed his albuterol solution for him Cough 07/11/2022 08/25/2024 Viral upper respiratory tract infection 02/20/2017 08/25/2024 Assessment & Plan (12/17/2022 10:15 AM EDT): It has been 5 days, cont to treat asymptomatic with tylenol, vapor showers and ns. Use albuterol q6hr cough + SOB and use IN daily x 1 wk Reconsult PRN Pt received flu IZ today, counseled to have Covid booster in 1 m Well controlled intermittent asthma 02/07/2016 08/25/2024 Encounters Date Type Department Care Team Description 11/17/2024 9:00 AM EDT Office Visit [facility] [address] [place] [address] Abundio Siegel DMD 11/17/2024 8:00 AM EDT Office Visit [facility] [address] [place] [address] Nona Acuna Localized gingival recession (Primary Dx); Excessive attrition of teeth, limited to enamel; Dental plaque; Missing teeth, acquired; Dental calculus 10/20/2024 8:00 AM EDT Office Visit [facility] [address] [place] [address] Abundio Siegel DMD 10/13/2024 Refill [facility] [address] [place] [address] Antonella Gerard MD 10/13/2024 Refill [facility] [address] [place] [address] Christal Abundio, HATTIE 10/01/2024 Refill [facility] [address] [place] [address] Antonella Gerard MD from Last 3 Months Immunizations Immunization Administration Dates Next Due Influenza injectable quadriv alent preservative free 12/17/2022,12/14/2021,04/10/2021,2019 Influenza, seasonal, injecta ble, preservative free 12/03/2023 Pfizer Covid-19 Vaccine 12+ 12/03/2023, Pneumococcal Conjugate PCV 13 01/26/2020 Pneumococcal Conjugate PCV 20 11/05/2023 Tdap 04/10/2021 Zoster, Recombinant 07/09/2021,04/30/2021 Family History Medical History Relation Name Comments Diabetes Mother Heart disease Mother Diabetes Sister Relation Name Status Comments Mother Sister Social History Tobacco Use Types Packs/Day Years Used Date Smoking Tobacco: Never Passive Smoke Exposure: Never Smokeless Tobacco: Never Tobacco Cessation:Counseling Given: Not Answered Alcohol Use Standard Drinks/Week Comments Never 0 [...] Orientation Straight 12/24/2021 10 :30 AM EDT Last Filed Vital Signs Vital Sign Reading Time Taken Comments Blood Pressure 126/74 11/17/2024 8:09 AM EDT Pulse 62 10/20/2024 8:06 AM EDT Temperature 36.4 C (97.5 F) 08/25/2024 8:52 AM EDT Respiratory Rate 12 08/25/2024 8:52 AM EDT Oxygen Saturation 96% 04/13/2024 8:48 AM EST Inhaled Oxygen Concentration - - Weight 134 kg (296 lb 6 oz) 08/25/2024 8:52 AM E DT Height 170.2 cm (5' 7 ) 08/25/2024 8:52 AM EDT Body Mass Index 46.42 08/25/2024 8:52 AM EDT Plan of Treatment Health Maintenance Due Date Last Done Comments CT Colonography 1959 FIT DNA/Cologuard 1959 FIT 1959 FOBT 1959 Sigmoidoscopy 1959 COVID-19 Vaccine ( season) 2024 12/03/2023, 01/08/2023, 12/14/2021, Additional history exists Influenza Vaccine (#1) 2024 , 12/17/2022, 12/14/2021, Additional history exists SDOH Screening 03/30/2025 03/30/2024 Dental Oral Exam 05/18/2025 11/17/2024, , 01/08/2023, Additional history exists Dental Prophylaxis 05/18/2025 11/17/2024, 0 05/12/2024, 11/11/2023, Additional history exists Alcohol/Substance Use Screening 08/25/2025 08/25/2024 Depression Screening 08/25/2025 08/25/2024, 08/26/19 Tobacco Screening 11/17/2025 11/17/2024 Dental X-Ray: Bitewings 11/18/2025 11/18/19, 11/11/2023, 03/28/2023, Additional history exists Dental X-Ray: Full Mouth 11/19/2027 11/17/2024, 04/25 Lipid Panel 08/25/2029 08/25/2024, 08/0 04/2022, 04/05/2021, Additional history exists DTaP/Tdap/Td Vaccines (2 - Td or Tdap) 04/10/2031 04/10/2021 Colonoscopy 05/03/2032 05/03/2022 Colorectal Cancer Screening 05/03/2032 Zoster Vaccines Completed 07/09/2021, 04/30/2021 Pneumococcal Vaccine: 50+ Years Completed 11/05/2023, 01/26/2020 Hepatitis C Screening Completed 08/25/2024 RSV Patients and Patients Aged 60 years or older Completed 08/26/2024 HIB Vaccines Aged Out No longer eligi ble based on patient's age to complete this topic HPV Vaccines Aged Out No longer eligi ble based on patient's age to complete this topic Hepatitis A Vaccines Aged Out No long er eligible based on patient's age to complete this topic Hepatitis B Vaccines Aged Out No long er eligible based on patient's age to complete this topic IPV Vaccines Aged Out No longer eligi ble based on patient's age to complete this topic Meningococcal B Vaccine Aged Out No l onger eligible based on patient's age to complete this topic Meningococcal Vaccine Aged Out No daniella geneva eligible based on patient's age to complete this topic RSV under 20 months Aged Out No longe r eligible based on patient's age to complete this topic Rotavirus Vaccines Aged Out No longer eligible based on patient's age to complete this topic Procedures Procedure Name Priority Date/Time Associated Diagnosis Comments CASE PRESENTATION, DETAILED AND EXTENSIVE TREATMENT PLANNING Routine 11/17/2024 9:00 AM EDT 6 CROWN - PORCELAIN/CERAMIC Routine 11/17/2024 9:00 AM EDT PERIODIC ORAL EVALUATION - ESTABLISHED PATIENT Routine 11/17/2024 8:00 AM EDT ORAL HYGIENE INSTRUCTIONS Routine 11/17/2024 8:00 AM EDT Localized gingival recession Excessive attrition of teeth, limited to enamel Dental plaque Missing teeth, acquired PROPHYLAXIS - ADULT Routine 11/17/2024 8 :00 AM EDT Dental plaque INTRAORAL - COMPLETE SERIES OF RADIOGRAPHIC IMAGES Routine 11/17/2024 8:00 AM EDT Localized gingival recession Excessive attrition of teeth, limited to enamel Missing teeth, acquired 21 O COMPOSITE FILLING Routine 11/17/2024 12:00 AM EDT 29 O COMPOSITE FILLING Routine 11/17/2024 12:00 AM EDT 2 O AMALGAM FILLING Routine 11/17/2024 1 2:00 AM EDT 1 EXTRACTION Routine 11/17/2024 12:00 AM EDT CASE PRESENTATION, DETAILED AND EXTENSIVE TREATMENT PLANNING Routine 10/20/2024 8:00 AM EDT 6 CROWN PREP Routine 10/20/2024 8:00 AM EDT 6 PREFABRICATED POST AND CORE IN ADDITION TO CROWN Routine 10/20/2024 8:00 AM EDT HEPATITIS C VIRAL RNA, QUANTITATIVE, REAL-TIME PCR Routine 08/25/2024 9:24 AM EDT Hyperglycemia LIPID PANEL WITH REFLEX TO DIRECT LDL Routine 08/25/2024 9:24 AM EDT Primary hypertension HM COLONOSCOPY Routine 05/03/2022 10:57 AM EST from Last 3 Months or Most Recently Relevant to Health Maintenance Results * (ABNORMAL) Lipid Panel with Reflex to Direct LDL (08/25/2024 9:24 AM EDT) Triglycerides 104 <150 mg/dL [facility] Comment:Desirable Triglyceri de: less than 150 mg/dLBorderline High Triglyceride 150-199 mg/dLHigh Triglyceride: 200-499 mg/dLVery High Triglyceride: greater than or equal to 5OO mg/dL Cholesterol 158 <200 mg/dL [facility] Comment:Desirable Cholestero l: less than 200 mg/dLBorderline High Cholesterol: 200-239 mg/dLHigh Cholesterol: greater than 239 mg/dL LDL Cholesterol Calculated 102(H) <100 mg/dL [facility] Comment:Desirable LDL: less than 100 mg/dLNear Optimal/Above Optimal LDL: 110- 129 mg/dLBorderline High LDL: 130-159 mg/dLHigh LDL: 160-189 mg/dLVery High LDL: greater than or equal to 190 mg/dL HDL Cholesterol 36(L) >40 mg/dL [facility] Comment:Desirable HDL: great er than 40 mg/dL Note: This HDL assay may give artificially low results in patients with liver disease. Blood 08/25/2024 9:24 AM EDT 08/25/2024 11:51 AM EDT Antonella Gerard MD LAB BLOOD ORDERABLES Fin al Result Performing Organization Address [facility] de Phone Number [facility] [address] [place] [phone] * Hepatitis C Viral RNA, Quantitative, Real-Time PCR (08/25/2024 9:24 AM EDT) [facility] Hepatitis C Viral Load <15 NOT DETECTED NOT DETECTED IU/mL [facility] HCV Log PCR <1.18 NOT DETECTED NOT DETECTED Log IU/mL [facility] Comment:For additional infor mation, please refer [email or web address].[employer]/faq/BDE50l0(This link is being provided for informational/educational purposes only.)THIS TEST WAS PERFORMED AT:[facility] [place] [id number] PHELAN MD Blood 08/25/2024 9:24 AM EDT 08/25/2024 11:22 AM EDT Antonella Gerard MD LAB BLOOD ORDERABLES Fin al Result Performing Organization Address [facility] Co de Phone Number [facility] [address] [place] [phone] * Hm Colonoscopy (05/03/2022 10:57 AM EST) Colonoscopy Normal Normal Narrative Aide Santillan - 05/03/2022 10:57 AM EST Recommended 10 years . see external hospital admission note on 05/03/2022 us Historical Provider HEALTH MAINTENANCE Edited Result - Final from Last 3 Months or Most Recently Relevant to Health Maintenance Insurance [facility]ICAID) Care Teams Water Systems Engineer Relationship Specialty Start Date End Date Antonella Gerard MD [address] [place] [phone] PCP - General Family Medicine 02/24/18
--- OUTSIDE RECORDS SUMMARY | 2024-12-31 16:22 | XMS_ITS | Encounter Summary ---
Author Organization [employer] Address [address] [facility] 7t [place] [address] Care Team Providers Care Airline Pilot Name Role Phone Antonella Gerard MD Primary Care Provider + Reason for Visit * Reason Onset Date Comments medication 04/07/2023 Encounter Details Date Type Department Care Team (Late st Contact Info) Description 04/07/2023 Telephone [facility] [address] [place] [address] Pinky Lopez, KEERTHIS [address] [place] [address] medication Social History Tobacco Use Types Packs/Day Years [...] Telephone Encounter - Abundio Siegel DMD - 04/10/2023 3:43 PM EST Just sent the prescription . Thanks Dr. Siegel * Telephone Encounter - Avis Sagastume - 04/10/2023 3:01 PM EST Message for Dr. Soriano Patient called in stating that provider sent in medication to the pharmacy ont he date that he camein for RCT. He states the medication helped with the pain for the tooth that is due to be extractedon 04/30. He states he would like another script to be sent because he is in pain still and the medication helps. DR * Telephone Encounter - Kenyatta Parisi - 04/07/2023 8:42 AM EST Patient ask if you can please send him ibuprofen [phone]. Please and thank u documented in this encounter Plan of Treatment Not on file documented as of this encounter Visit Diagnoses Not on filedocumented in this encounter Care Teams Airline Pilot Relationship Specialty Start Date End Date Antonella Gerard MD [address] [place] [phone] PCP - General Family Medicine 02/24/18 documented as of this encounter
--- OUTSIDE RECORDS SUMMARY | 2024-12-31 16:22 | XMS_ITS | Encounter Summary ---
Author Organization [employer] Address [address] [facility] 7t [place] [address] Care Team Providers Care Carrot Grader Inspector Name Role Phone Antonella Gerard MD Primary Care Provider + Encounter Details Date Type Department Care Team (Late st Contact Info) Description 10/02/2022 Orders Only [facility] [address] [place] [address] Aurora Lozano LPN Social History Tobacco Use [...] on filedocumented in this encounter Care Teams Carrot Grader Inspector Relationship Specialty Start Date End Date Antonella Gerard MD [address] [place] [phone] PCP - General Family Medicine 02/24/18 documented as of this encounter
--- OUTSIDE RECORDS SUMMARY | 2024-12-31 16:22 | XMS_ITS | Encounter Summary ---
Author Organization [employer] Address 75 [facility] 7t [place] [address] Care Team Providers Care Animal Anatomy Teacher Name Role Phone Antonella Gerard MD Primary Care Provider + Reason for Visit * Reason Onset Date Comments Nurse Triage 06/16/2023 Encounter Details Date Type Department Care Team (Late st Contact Info) Description 06/16/2023 Telephone [facility] MEDICINE 230 [place], [place] [phone] Antonella Gerard MD 230 [place], [place] [phone] Nurse Triage Social History Tobacco Use Types Packs/Day Years [...] encounter Miscellaneous Notes * Telephone Encounter - Christopher Tello - 06/16/2023 11:53 AM EDT Symptom: Foot or Ankle Pain - Not From Injury Outcome: Schedule an urgent appointment (within 1 hour) or talk to a nurse or provider soon Reason: Trouble walking The caller accepted this outcome Patient speaks maltese documented in this encounter Plan of Treatment Not on file documented as of this encounter Visit Diagnoses Not on filedocumented in this encounter Care Teams Animal Anatomy Teacher Relationship Specialty Start Date End Date Antonella Gerard MD [address] [place] [address] PCP - General Family Medicine 02/24/18 documented as of this encounter
== END 2024-12-31 15:34 | disposition home or self-care (01) ==
LOC: HO.PMC 15:10
PROVIDERS: PCP Internal Medicine; Visit Provider Registered Nurse Emergency
DX: M25.551 Pain in right hip (principal)
CPT/HCPCS: 99213; G2211

== ENCOUNTER → 2024-12-31 15:09 | Outpatient (BNVA) | payer MEDICARE, MEDICAID, SELFPAY | PROVIDERS: PCP Internal Medicine; Visit Provider Registered Nurse Emergency | DX: M25.551 Pain in right hip (principal) | CPT/HCPCS: 99212 ==

== ENCOUNTER 2025-02-15 06:25 | Outpatient (REF) | payer MEDICARE, MEDICAID, SELFPAY ==
--- NOTE | ~2025-02-15 | FL_ITS ---
EXAMINATION: XR FLUOROSCOPY WITH IMAGES CLINICAL INFORMATION: Hip pain COMPARISON: None available. TECHNIQUE: Fluoroscopy time: 28 seconds DAP: 9.4 mGy Images: 3 FINDINGS: Fluoroscopy provided for hip joint injection. No radiologist present. FL/FL guidance in treatment room IMPRESSION: Fluoroscopy provided for procedure. See procedure report for details. Electronically signed by: Josué Mccarty MD 02/18/2025 10:39 AM ROJAS
--- OUTSIDE RECORDS SUMMARY | 2025-02-15 06:27 | XMS_ITS | Encounter Summary ---
Author Organization [employer] Address 75 [facility] 7t [place] [address] Care Team Providers Care Fundraising Consultant Name Role Phone Antonella Gerard MD Primary Care Provider + Reason for Visit * Reason Onset Date Comments Dr. Siegel active request 03/30/2024 Encounter Details Date Type Department Care Team ([facility] st Contact Info) Description 03/30/2024 Telephone [facility] D[facility] [address] [place], [place] [phone] Alexei Padilla, KEERTHIS [address] [place] [address] Dr. Siegel active request Social History Tobacco [...] in 11/2023. Reached out to [facility] and lockstitch front maker will be reaching out to patient more than likely by the end of the month to schedule appt with Dr. Padilla. documented in this encounter Plan of Treatment Upcoming Encounters Date Type Department Care Team (Late st Contact Info) Description 05/04/2025 9:00 AM EDT Office Visit [facility] OPTOMETRY [address] [place] [address] Melody Lr, OD 230 [place] [address] documented as of this encounter Visit Diagnoses Not on filedocumented in this encounter Care Teams Fundraising Consultant Relationship Specialty Start Date End Date Antonelal Gerard MD 230 [place] [address] PCP - General Family Medicine 02/24/18 documented as of this encounter
--- OUTSIDE RECORDS SUMMARY | 2025-02-15 06:27 | XMS_ITS | Encounter Summary ---
Author Organization [employer] Address [address] [place] [address] 7 [place] [address] Care Team Providers Care Car Wrecker Name Role Phone Antonella Gerard MD Primary Care Provider + Reason for Visit * Reason Onset Date Comments Med Refill 10/25/2022 Encounter Details Date Type Department Care Team (Late st Contact Info) Description 10/25/2022 Telephone [facility] MEDICINE 230 [place], [place] [phone] Antonella Gerard MD 230 [place] [address] Med Refill Social History Tobacco Use Types [...] Description 05/04/2025 9:00 AM EDT Office Visit [facility] OPTOMETRY [address] [place] [address] Melody Lr, OD 230 [place] [address] documented as of this encounter Visit Diagnoses Not on filedocumented in this encounter Care Teams Car Wrecker Relationship Specialty Start Date End Date Antonella Gerard MD 230 [place], [place] [phone] PCP - General Family Medicine 02/24/18 documented as of this encounter
--- OUTSIDE RECORDS SUMMARY | 2025-02-15 06:27 | XMS_ITS | Encounter Summary ---
Author Organization [employer] Address 75 [facility] 7 [place] [address] Care Team Providers Care Equipment Coordinator Name Role Phone Antonella Gerard MD Primary Care Provider + Reason for Visit * Reason Onset Date Comments Med Refill 5000 boster toothpaste 07/08/2022 Encounter Details Date Type Department Care Team (Late st Contact Info) Description 07/08/2022 Refill [facility] DENTAL [address] [place], [place] [phone] Abundio Siegel, HATTIE 230 [place] [address] Social History Tobacco Use Types Packs/Day Years [...] Description 05/04/2025 9:00 AM EDT Office Visit [facility] OPTOMETRY [address] [place], [place] [phone] Melody Lr, ERA 230 [place] [address] documented as of this encounter Visit Diagnoses Not on filedocumented in this encounter Care Teams Equipment Coordinator Relationship Specialty Start Date End Date Antonella Gerard MD 230 [place], [place] [phone] PCP - General Family Medicine 02/24/18 documented as of this encounter
--- OUTSIDE RECORDS SUMMARY | 2025-02-15 06:27 | XMS_ITS | Encounter Summary ---
Author Organization [employer] Address 75 [facility] 7 [place] [address] Care Team Providers Care Product Marketing Specialist Name Role Phone Antonella Gerard MD Primary Care Provider + Reason for Visit * Reason Comments Med Refill Encounter Details Date Type Department Care Team ([facility] Contact Info) Description 07/03/2022 Refill [facility] CHC MED & PEDS 505 [place], [place] [phone] Antonella Gerard MD 230 [place], [place] [phone] Allergic rhinitis, unspecified seasonality, unspecified trigger Social [...] as of this encounter Plan of Treatment Upcoming Encounters Date Type Department Care Team ([facility] Contact Info) Description 05/04/2025 9:00 AM EDT Office Visit [facility] OPTOMETRY 267 [place] [address] Be, Melody, OD 230 [place] [address] documented as of this encounter Visit Diagnoses Diagnosis Allergic rhinitis, unspecified seasonality, unspecified trigger documented in this encounter Care Teams Product Marketing Specialist Relationship Specialty Start Date End Date Antonella Gerard MD [address] [place] [address] PCP - General Family Medicine 02/24/18 documented as of this encounter
--- OUTSIDE RECORDS SUMMARY | 2025-02-15 06:27 | XMS_ITS | Encounter Summary ---
Author Organization [employer] Address 75 [facility] 7t [place] [address] Care Team Providers Care Tool Die Maker Name Role Phone Antonella Gerard MD Primary Care Provider + Reason for Visit * Reason Comments Med Refill Encounter Details Date Type Department Care Team ([facility] st Contact Info) Description 07/26/2024 Refill [facility] MEDICINE 230 [place], [place] [phone] Antonella Gerard MD 230 [place], [place] [phone] Primary hypertension Social History Tobacco Use Types [...] Description 05/04/2025 9:00 AM EDT Office Visit [facility] OPTOMETRY [address] [place] [address] Melody Lr, OD 230 [place] [address] documented as of this encounter Visit Diagnoses Diagnosis Primary hypertension Unspecified essential hypertension documented in this encounter Care Teams Tool Die Maker Relationship Specialty Start Date End Date Antonella Gerard MD 230 [place] [address] PCP - General Family Medicine 02/24/18 documented as of this encounter
--- OUTSIDE RECORDS SUMMARY | 2025-02-15 06:27 | XMS_ITS | Encounter Summary ---
Author Organization [employer] Address 75 [facility] 7 [place] [address] Care Team Providers Care Retail Parts Pro Name Role Phone Antonella Gerard MD Primary Care Provider + Encounter Details Date Type Department Care Team (Late Contact Info) Description 09/26/2022 Orders Only [facility] MEDICINE 230 [place] [address] Shyann Golden RN 230 [place] [address] Essential hypertension; Bilateral hip joint arthritis Social [...] Encounters Date Type Department Care Team (Late Contact Info) Description 05/04/2025 9:00 AM EDT Office Visit [facility] OPTOMETRY [address] [place] [address] Melody Lr, OD 230 [place] [address] Scheduled Orders Name Type Priority Associated Diagnoses [...] arthritis documented in this encounter Care Teams Retail Parts Pro Relationship Specialty Start Date End Date Antonella Gerard MD [address] [place] [address] PCP - General Family Medicine 02/24/18 documented as of this encounter
--- OUTSIDE RECORDS SUMMARY | 2025-02-15 06:27 | XMS_ITS | Encounter Summary ---
Author Organization [employer] Address [address] [place] [address] 7 [place] [address] Care Team Providers Care Burn Out Tender Lace Name Role Phone Antonella Gerard MD Primary Care Provider + Encounter Details Date Type Department Care Team (Late st Contact Info) Description 10/02/2022 Orders Only [facility] CHC MED & PEDS 505 [place] [address] Aurora Lozano LPN Social History Tobacco Use [...] Description 05/04/2025 9:00 AM EDT Office Visit [facility] OPTOMETRY 267 [place] [address] Melody Lr, OD 230 [place] [address] documented as of this encounter Visit Diagnoses Not on filedocumented in this encounter Care Teams Burn Out Tender Lace Relationship Specialty Start Date End Date Antonella Gerard MD 230 [place] [address] PCP - General Family Medicine 02/24/18 documented as of this encounter
--- OUTSIDE RECORDS SUMMARY | 2025-02-15 06:27 | XMS_ITS | Encounter Summary ---
Author Organization [employer] Address 75 [facility] 7t [place] [address] Care Team Providers Care Soft Sugar Supervisor Name Role Phone Antonella Gerard MD Primary Care Provider + Reason for Visit * Reason Onset Date Comments Med Refill 06/03/2024 Encounter Details Date Type Department Care Team (Late st Contact Info) Description 06/03/2024 Telephone [facility] MEDICINE 230 [place], [place] [phone] Antonella Gerard MD 230 [place], [place] [phone] Med Refill Social History Tobacco Use Types [...] 3:09 PM EDT Medication was sent to [facility][id number] on 05/31/24 #90 with 1 refill. * Telephone Encounter - Thomas Coffey - 06/03/2024 3:06 PM EDT TC from pt requesting medication refill. Medications needing refill : lisinopril-hydroCHLOROthiazide 20-12.5 MG tablet To be sent to: [facility][id number] - [place], [place] - [address] [place] [address] AT [facility] [address]RT [address] ARMORY documented in this encounter Plan of Treatment Upcoming Encounters Date Type Department Care Team (Late st Contact Info) Description 05/04/2025 9:00 AM EDT Office Visit [facility] OPTOMETRY [address] [place] [address] Melody Lr, OD 230 [place] [address] documented as of this encounter Visit Diagnoses Not on filedocumented in this encounter Care Teams Soft Sugar Supervisor Relationship Specialty Start Date End Date Antonella Gerard MD 230 [place] [address] PCP - General Family Medicine 02/24/18 documented as of this encounter
--- OUTSIDE RECORDS SUMMARY | 2025-02-15 06:27 | XMS_ITS | Encounter Summary ---
Author Organization [employer] Address [address] [place] [address] 7 [place] [address] Care Team Providers Care Oracle Analyst Name Role Phone Antonella Gerard MD Primary Care Provider + Encounter Details Date Type Department Care Team (Late st Contact Info) Description 10/30/2022 Orders Only [facility] CHC MED & PEDS 505 [place] [address] Esmer Reeves LPN Social History Tobacco Use [...] Description 05/04/2025 9:00 AM EDT Office Visit [facility] OPTOMETRY 267 [place] [address] Melody Lr, OD 230 [place] [address] documented as of this encounter Visit Diagnoses Not on filedocumented in this encounter Care Teams Oracle Analyst Relationship Specialty Start Date End Date Antonella Gerard MD 230 [place] [address] PCP - General Family Medicine 02/24/18 documented as of this encounter
--- OUTSIDE RECORDS SUMMARY | 2025-02-15 06:27 | XMS_ITS | Encounter Summary ---
Author Organization [employer] Address 75 [facility] 7t [place] [address] Care Team Providers Care Manager Eligibility Name Role Phone Antonella Gerard MD Primary Care Provider + Reason for Visit * Reason Comments Med Refill Encounter Details Date Type Department Care Team ([facility] st Contact Info) Description 08/25/2024 Refill [facility] MEDICINE 230 [place], [place] [phone] Antonella Gerard MD 230 [place] [address] Social History Tobacco Use Types Packs/Day Years [...] Description 05/04/2025 9:00 AM EDT Office Visit [facility] OPTOMETRY [address] [place], [place] [phone] Melody Lr, OD 230 [place] [address] documented as of this encounter Visit Diagnoses Not on filedocumented in this encounter Care Teams Manager Eligibility Relationship Specialty Start Date End Date Antonella Gerard MD 230 [place] [address] PCP - General Family Medicine 02/24/18 documented as of this encounter
--- OUTSIDE RECORDS SUMMARY | 2025-02-15 06:27 | XMS_ITS | Encounter Summary ---
Author Organization [employer] Address 75 [facility] 7t [place] [address] Care Team Providers Care Sales Manager Prearranged Funerals Name Role Phone Antonella Gerard MD Primary Care Provider + Reason for Visit * Reason Comments Med Refill Encounter Details Date Type Department Care Team ([facility] st Contact Info) Description 04/12/2024 Refill [facility] MEDICINE 230 [place], [place] [phone] Antonella Gerard MD 230 [place] [address] Social History Tobacco Use Types Packs/Day Years [...] 9:00 AM EDT Office Visit [facility] OPTOMETRY [address] [place], [place] [phone] Melody Lr, OD 230 [place] [address] documented as of this encounter Visit Diagnoses Not on filedocumented in this encounter Care Teams Sales Manager Prearranged Funerals Relationship Specialty Start Date End Date Antonella Gerard MD 230 [place] [address] PCP - General Family Medicine 02/24/18 documented as of this encounter
--- OUTSIDE RECORDS SUMMARY | 2025-02-15 06:27 | XMS_ITS | Encounter Summary ---
Author Organization [employer] Address 75 [facility] 7t [place] [address] Care Team Providers Care Merry Go Round Operator Name Role Phone Antonella Gerard MD Primary Care Provider + Encounter Details Date Type Department Care Team ([facility] st Contact Info) Description 06/28/2024 Orders Only [facility] CHC MED & PEDS [address] [place] [address] Aide Santillan Social History Tobacco Use Types [...] Description 05/04/2025 9:00 AM EDT Office Visit [facility] OPTOMETRY [address] [place] [address] Be, Megan, OD 230 [place] [address] documented as of this encounter Procedures Procedure Name Priority Date/Time Associated Diagnosis Comments HM COLONOSCOPY Routine 05/03/2022 10:57 AM EST documented in this encounter Results * Hm Colonoscopy (05/03/2022 10:57 AM EST) Colonoscopy Normal Normal Narrative Aide Santillan - 05/03/2022 10:57 AM EST Recommended 10 years . see external hospital admission note on 05/03/2022 us Historical Provider [facility] MAINTENANCE Edited Result - Final documented in this encounter Visit Diagnoses Not on filedocumented in this encounter Care Teams Merry Go Round Operator Relationship Specialty Start Date End Date Antonella Gerard MD 230 [place] [address] PCP - General Family Medicine 02/24/18 documented as of this encounter
--- OUTSIDE RECORDS SUMMARY | 2025-02-15 06:27 | XMS_ITS | Encounter Summary ---
Author Organization [employer] Address 75 [facility] 7t [place] [address] Care Team Providers Care Custom Marine Canvas Fabricator Name Role Phone Antonella Gerard MD Primary Care Provider + Reason for Visit * Reason Comments Med Refill Encounter Details Date Type Department Care Team ([facility] st Contact Info) Description 06/08/2024 Refill [facility] MEDICINE 230 [place], [place] [phone] Antonella Gerard MD 230 [place], [place] [phone] Primary hypertension Social History Tobacco Use Types [...] 9:00 AM EDT Office Visit [facility] OPTOMETRY [address] [place] [address] Melody Lr, OD 230 [place] [address] documented as of this encounter Visit Diagnoses Diagnosis Primary hypertension Unspecified essential hypertension documented in this encounter Care Teams Custom Marine Canvas Fabricator Relationship Specialty Start Date End Date Antonella Gerard MD 230 [place] [address] PCP - General Family Medicine 02/24/18 documented as of this encounter
--- OUTSIDE RECORDS SUMMARY | 2025-02-15 06:27 | XMS_ITS | Encounter Summary ---
Author Organization [employer] Address 75 [facility] 7t [place] [address] Care Team Providers Care Hydrogen Treater Name Role Phone Antonella Gerard MD Primary Care Provider + Reason for Visit * Reason Comments Med Refill Encounter Details Date Type Department Care Team ([facility] st Contact Info) Description 10/13/2024 Refill [facility] MEDICINE 230 [place], [place] [phone] Antonella Gerard MD 230 [place] [address] Social History Tobacco Use Types Packs/Day Years [...] [facility] OPTOMETRY [address] [place], [place] [phone] Melody Lr, OD 230 [place] [address] documented as of this encounter Visit Diagnoses Not on filedocumented in this encounter Care Teams Hydrogen Treater Relationship Specialty Start Date End Date Antonella Gerard MD 230 [place] [address] PCP - General Family Medicine 02/24/18 documented as of this encounter
--- OUTSIDE RECORDS SUMMARY | 2025-02-15 06:27 | XMS_ITS | Encounter Summary ---
Author Organization [employer] Address 75 [facility] 7t [place] [address] Care Team Providers Care Die Designer Apprentice Name Role Phone Antonella Gerard MD Primary Care Provider + Reason for Visit * Reason Onset Date Comments Med Refill 02/24/2024 Encounter Details Date Type Department Care Team (Late st Contact Info) Description 02/24/2024 Telephone [facility] MEDICINE 230 [place], [place] [phone] Antonella Gerard MD 230 [place], [place] [phone] Med Refill Social History Tobacco Use Types [...] 11:09 AM EST Medications were sent to [facility][id number] on 02/23/24. * Telephone Encounter - Denise Ceja - 02/24/2024 10:59 AM EST TC from pt requesting medication refill. Medications needing refill : sildenafil (Viagra) 100 MG tablet albuterol (2.5 MG/3ML) 0.083% nebulizer solution To be sent to: [facility] #[id number] documented in this encounter Plan of Treatment Upcoming Encounters Date Type Department Care Team (Late st Contact Info) Description 05/04/2025 9:00 AM EDT Office Visit [facility] OPTOMETRY [address] [place] [address] Melody Lr, OD 230 [place] [address] documented as of this encounter Visit Diagnoses Not on filedocumented in this encounter Care Teams Die Designer Apprentice Relationship Specialty Start Date End Date Antonella Gerard MD 230 [place] [address] PCP - General Family Medicine 02/24/18 documented as of this encounter
--- OUTSIDE RECORDS SUMMARY | 2025-02-15 06:27 | XMS_ITS | Encounter Summary ---
Author Organization [employer] Address 75 [facility] 7 [place] [address] Care Team Providers Care Claims Service Representative Name Role Phone Antonella Gerard MD Primary Care Provider + Encounter Details Date Type Department Care Team (Latest Contact Info) Description 05/21/2021 Abstract [facility] CONVERSIONS Dental, Provider, DDS Social History [...] 05/04/2025 9:00 AM EDT Office Visit [facility] OPTOMETRY [address] [place] [address] Be, Melody, OD 230 [place] [address] documented as of this encounter Visit Diagnoses Not on filedocumented in this encounter Care Teams Claims Service Representative Relationship Specialty Start Date End Date Antonella Gerard MD 230 [place] [address] PCP - General Family Medicine 02/24/18 documented as of this encounter
--- OUTSIDE RECORDS SUMMARY | 2025-02-15 06:27 | XMS_ITS | Encounter Summary ---
Author Organization [employer] Address 75 [facility] 7t [place] [address] Care Team Providers Care Medical Billing Manager Name Role Phone Antonella Gerard MD Primary Care Provider + Encounter Details Date Type Department Care Team (Late st Contact Info) Description 04/09/2022 Orders Only [facility] CHC MED & PEDS 505 [place], [place] [phone] Aurora Lozano LPN Social History Tobacco Use [...] Description 05/04/2025 9:00 AM EDT Office Visit [facility] OPTOMETRY 267 [place] [address] Be, Melody, OD 230 [place] [address] documented as of this encounter Procedures Procedure Name Priority Date/Time Associated Diagnosis Comments HEMATOXYLIN AND EOSIN STAIN Routine 05/03/2022 11:50 AM EST documented in this encounter Results * Hematoxylin and Eosin Stain (05/03/2022 11:50 AM EST) 05/03/2022 11:5 0 AM EST 05/03/2022 12:27 PM EST [facility] LABS - 05/06/2022 1:57 PM EDT ----- ------- Name: David Toney Age/Sex: 62/M : 1960 Unit#: [id number] Attend Dr: Kamlesh Mcgee MD Re05/03/22 Status: [facility] Location: HO.SSS Disch: ----- ------- SPEC : [id number] RECD: 05/03/22 STATUS: ROSELINE AGUSTIN NUM: [id number] MILES: 05/03/22-1150 [facility] [address]: Kamlesh Mcgee MD ENTERED: 05/03/22-131 [...] in toto in a single cassette labeled B. CEDS Copies To: Antonella Gerard MD [address] [place], [place] [phone] CONTINUED ON NEXT PAGE ----- ------- Name: David Toney Age/Sex: 62/M : 1960 [id number]#: [id number] Attend Dr: Kamlesh Mcgee MD Re05/03/22 Status: [facility] Location: [facility] Disch: ----- ------- SPEC : [id number] RECD: 05/03/22 STATUS: ROSELINE AGUSTIN NUM: [id number] MILES: 05/03/22-[address] [facility] [address]: Kamlesh Mcgee MD ENTERED: 05/03/22 SP TYPE: Surgical OTHR DR: Antonella Gerard MD ORDERED: KATIE Stain/6, Good Quinn L4/2 Copies To: (Continued) Kamlesh Mcgee MD [address] [place] [address] [place] [address] ----- ------- Signed (signature on file) Theresa Isaac 05/06/22 1357 ----- ------- END OF REPORT [facility] External Provider LAB BLO OD ORDERABLES Final Result [facility] LABS [address] [place] [address] [phone] documented in this encounter Visit Diagnoses Not on filedocumented in this encounter Care Teams Medical Billing Manager Relationship Specialty Start Date End Date Antonella Gerard MD [address] [place] [address] PCP - General Family Medicine 02/24/18 documented as of this encounter
--- OUTSIDE RECORDS SUMMARY | 2025-02-15 06:27 | XMS_ITS | Encounter Summary ---
Author Organization [employer] Address 75 [facility] 7 [place] [address] Care Team Providers Care Spirits Model Name Role Phone Antonella Gerard MD Primary Care Provider + Encounter Details Date Type Department Care Team (Late Contact Info) Description 07/15/2022 Orders Only [facility] ADULT DENTAL 230 [place] [address] Pinky Lopez, DDS 230 [place] [address] Social History Tobacco Use Types Packs/Day Years [...] Description 05/04/2025 9:00 AM EDT Office Visit [facility] OPTOMETRY [address] [place] [address] Be, Melody, OD 230 [place] [address] documented as of this encounter Visit Diagnoses Not on filedocumented in this encounter Care Teams Spirits Model Relationship Specialty Start Date End Date Antonella Gerard MD [address] [place] [address] PCP - General Family Medicine 02/24/18 documented as of this encounter
--- OUTSIDE RECORDS SUMMARY | 2025-02-15 06:27 | XMS_ITS | Encounter Summary ---
Author Organization [employer] Address [address] [facility] 7t [place] [address] Care Team Providers Care Arcade Technician Name Role Phone Antonella Gerard MD Primary Care Provider + Reason for Visit * Reason Onset Date Comments medication 04/07/2023 Encounter Details Date Type Department Care Team (Late st Contact Info) Description 04/07/2023 Telephone [facility] ADULT DENTAL [address] [place] [address] Pinky Lopez, KEERTHIS [address] [place] [address] medication Social History Tobacco Use Types Packs/Day [...] Description 05/04/2025 9:00 AM EDT Office Visit [facility] OPTOMETRY [address] [place] [address] Melody Lr, OD [address] [place] [address] documented as of this encounter Visit Diagnoses Not on filedocumented in this encounter Care Teams Arcade Technician Relationship Specialty Start Date End Date Antonella Gerard MD [address] [place] [address] PCP - General Family Medicine 02/24/18 documented as of this encounter
--- OUTSIDE RECORDS SUMMARY | 2025-02-15 06:28 | XMS_ITS | Clinical Summary ---
Author Organization [employer] Address [address] [facility] 7[address] [place] [address] Care Team Providers Care Health It Specialist Name Role Phone Antonella Gerard MD Primary Care Provider + Allergies No known active allergies Medications polyethylene glycol, PEG, 3350 (MiraLax) 17 GM/SCOOP powder 17 grams in 8-12 oz fluid like water at bedtime prn constipation 527 g 2 06/20/19 23 Active Sodium Fluoride (Sodium Fluoride 5000 Plus) 1.1 % cream APPLY 1 MG TO TEETH THREE TIMES DAILY 51 g 3 11/09/19 23 Active triamcinolone (Kenalog) 0.1 % ointment Apply topically 2 times daily. 30 g 3 12/18/19 23 Active loratadine (Claritin) 10 MG tablet TAKE 1 TABLET BY MOUTH EVERY DAY 90 tablet 02/25/19 24 Active fluticasone (Flonase) 50 MCG/ACT nasal sprayIndication s:Viral upper respiratory tract infection,Aller gic rhinitis, unspecified seasonality, unspecified trigger SHAKE LIQUID AND USE 1 TO 2 SPRAYS IN EACH NOSTRIL EVERY DAY NEEDED 48 g 1 12/10/19 24 Active Spacer/Aero-Hol ding Chambers ([facility]) deviceIndicatio ns:Asthma, unspecified asthma severity, unspecified whether complicated, unspecified whether persistent USE DIRECTED WITH INHALER 1 each 01/05/20 24 Active Antacid Calcium 500 MG chewable tabletIndicatio ns:Gastroesopha geal reflux disease, unspecified whether esophagitis present CHEW AND SWALLOW 1 TABLET BY MOUTH THREE TIMES DAILY BEFORE MEALS NEEDED FOR HEARTBURN 90 tablet 3 03/01/19 25 Active cyclobenzaprine (Flexeril) 10 MG tablet Take 1 tablet (10 mg) by mouth if needed in the morning, at noon, and at bedtime for muscle spasms for up to 10 days. 30 tablet 05/09/19 25 Active Additional Information Patient not taking.Reported on 11/17/2024 Sodium Fluoride (PreviDent 5000 Booster Plus) 1.1 % paste Apply 1 Application. to teeth 2 times daily. 112 g 3 08/12/19 25 Active albuterol (2.5 MG/3ML) 0.083% nebulizer solutionIndicat ions:Mild intermittent asthma without complication USE 3 ML VIA NEBULIZER EVERY 6 HOURS 75 mL 3 08/26/19 Active albuterol 108 (90 Base) MCG/ACT inhalerIndicati ons:Mild intermittent asthma without complication INHALE 2 PUFFS BY MOUTH EVERY 4 TO 6 HOURS NEEDED 8.5 g 2 08/26/19 Active sildenafil (Viagra) 100 MG tablet TAKE 1/2 TO 1 TABLET BY MOUTH EVERY DAY 1 HOUR BEFORE SEXUAL ACTIVITY NEEDED 10 tablet 5 08/26/19 Active allopurinol (Zyloprim) 300 MG tablet Take 1 tablet (300 mg) by mouth Once per day. 90 tablet 1 08/26/19 25 Active colchicine 0.6 MG tablet Take 1 tablet (0.6 mg) by mouth if needed in the morning, at noon, and at bedtime for muscle/joint pain (GOut attack). 30 tablet 08/26/19 25 2025 Active celecoxib (CeleBREX) 200 MG capsule TAKE 1 CAPSULE(200 MG) BY MOUTH DAILY 90 capsule 01/07/20 25 Active lisinopril-hydr oCHLOROthiazide 20-12.5 MG tabletIndicatio ns:Primary hypertension TAKE 1 TABLET BY MOUTH DAILY 90 tablet 1 02/04/20 25 Active lisinopril-hydr oCHLOROthiazide 20-12.5 MG tabletIndicatio ns:Primary hypertension Take 1 tablet by mouth Once per day. 90 tablet 1 08/26/19 25 2024 Discontinued Active Problems Problem Noted Date Diagnosed Date [...] life style modifications, diet and referral to rail specialist. Recommended to decrease soda and sugary beverage consumption, increase protein intake with meals (at least 1 portion of protein with each meal) to assist with satiety, increase dietary fiber Recommended at least 150 min/week of moderate intensity exercise. 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 Patient returned his CPAP to [employer] earlier this year as he was apparently going to be charged for supplies (last one was 2y ago and company requests a newer one). I will order new sleep study And fu after that. Unclear what was the charge that [employer] was sending at the time Assessment & Plan (07/15/2022 9:47 AM EDT): Sleep study done 1-2 years ago needs CPAP to decrease morbidity and mortality will contact [employer] and try to workout the issue with [...] Encounters Date Type Department Care Team Description 02/03/2025 Refill [facility] MEDICINE [address] [place], [place] [phone] Antonella Gerard MD Primary hypertension 01/05/2025 Refill [facility] MEDICINE [address] [place] [address] Génesis Graham MD 11/17/2024 9:00 AM EDT Office Visit [facility] ADULT DENTAL [address] [place] [address] Abundio Siegel DMD 11/17/2024 8:00 AM EDT Office Visit [facility] ADULT DENTAL [address] [place] [address] Kalpana Nona Localized gingival recession (Primary Dx); Excessive attrition of teeth, limited to enamel; Dental plaque; Missing teeth, acquired; Dental calculus from Last 3 Months Immunizations Immunization Administration [...] 08/25/2024 8:52 AM EDT Plan of Treatment Upcoming Encounters Date Type Department Care Team (Late st Contact Info) Description 05/04/2025 9:00 AM EDT Office Visit [facility] OPTOMETRY [address] [place] [address] Be, Melody, OD [address] [place] [address] Health Maintenance Due Date Last Done Comments [...] 1 EXTRACTION Routine 11/17/2024 12:00 AM EDT HEPATITIS C VIRAL RNA, QUANTITATIVE, [...] 9:24 AM EDT) Triglycerides 104 <150 mg/dL [facility] Comment:Desirable Triglyceri de: less than 150 mg/dLBorderline High Triglyceride 150-199 mg/dLHigh Triglyceride: 200-499 mg/dLVery High Triglyceride: greater than or equal to 5OO mg/dL Cholesterol 158 <200 mg/dL [facility] Comment:Desirable Cholestero l: less than 200 mg/dLBorderline High Cholesterol: 200-239 mg/dLHigh Cholesterol: greater than 239 mg/dL LDL Cholesterol Calculated 102(H) <100 mg/dL [facility] Comment:Desirable LDL: less than 100 mg/dLNear Optimal/Above Optimal LDL: 110- 129 mg/dLBorderline High LDL: 130-159 mg/dLHigh LDL: 160-189 mg/dLVery High LDL: greater than or equal to 190 mg/dL HDL Cholesterol 36(L) >40 mg/dL [facility] Comment:Desirable HDL: great er than 40 mg/dL Note: This HDL assay may give artificially low results in patients with liver disease. Blood 08/25/2024 9:24 AM EDT 08/25/2024 11:51 AM EDT Antonella Gerard MD LAB BLOOD ORDERABLES Fin al Result Performing Organization Address [facility] de Phone Number [facility] [address] [place] [phone] * Hepatitis C Viral RNA, Quantitative, Real-Time PCR (08/25/2024 9:24 AM EDT) [facility] Hepatitis C Viral Load <15 NOT DETECTED NOT DETECTED IU/mL [facility] HCV Log PCR <1.18 NOT DETECTED NOT DETECTED Log IU/mL [facility] Comment:For additional infor medardo, please refer [email or web address](This link is being provided for informational/educational purposes only.)THIS TEST WAS PERFORMED AT:[facility] [place] [phone] PHELAN MD Blood 08/25/2024 9:24 AM EDT 08/25/2024 11:22 AM EDT Antonella Gerard MD LAB BLOOD ORDERABLES Fin al Result Performing Organization Address [facility] Co de Phone Number [facility] [address] [place] [phone] * Hm Colonoscopy (05/03/2022 10:57 AM EST) Colonoscopy Normal Normal Narrative Aide Santillan - 05/03/2022 10:57 AM EST Recommended 10 years . see external hospital admission note on 05/03/2022 us Historical Provider HEALTH MAINTENANCE Edited Result - Final from Last 3 Months or Most Recently Relevant to Health Maintenance Insurance [facility] DENTAL [facility] PPO DENTAL - N FULL (MEDICAID) Care Teams Health It Specialist Relationship Specialty Start Date End Date Antonella Gerard MD [address] [place] [phone] PCP - General Family Medicine 02/24/18
--- OUTSIDE RECORDS SUMMARY | 2025-02-15 06:28 | XMS_ITS | Encounter Summary ---
Author Organization [employer] Address [address] [facility] [address] [place] [address] Care Team Providers Care Bar Welder Name Role Phone Antonella Gerard MD Primary Care Provider + Reason for Visit * Reason Onset Date Comments Nurse Triage 06/16/2023 Encounter Details Date Type Department Care Team (Late st Contact Info) Description 06/16/2023 Telephone [facility] MEDICINE [address] [place], [place] [phone] Antonella Gerard MD [address] [place], [place] [phone] Nurse Triage Social History Tobacco Use Types [...] The caller accepted this outcome Patient speaks setswana documented in this encounter Plan of Treatment Upcoming Encounters Date Type Department Care Team (Late st Contact Info) Description 05/04/2025 9:00 AM EDT Office Visit [facility] OPTOMETRY [address] [place] [address] Melody Lr, OD [address] [place] [address] documented as of this encounter Visit Diagnoses Not on filedocumented in this encounter Care Teams Bar Welder Relationship Specialty Start Date End Date Antonella Gerard MD [address] [place] [address] PCP - General Family Medicine 02/24/18 documented as of this encounter
--- OUTSIDE RECORDS SUMMARY | 2025-02-15 06:28 | XMS_ITS | Encounter Summary ---
Author Organization [employer] Address [address] [facility] [address] [place] [address] Care Team Providers Care Supervisor Product Inspection Name Role Phone Antonella Gerard MD Primary Care Provider + Reason for Visit * Reason Comments Med Refill Encounter Details Date Type Department Care Team ([facility] st Contact Info) Description 09/11/2023 Refill [facility] MED & PEDS [address] [place], [place] [phone] Antonella Gerard MD [address] [place] [address] Primary hypertension Social History Tobacco Use Types [...] Description 05/04/2025 9:00 AM EDT Office Visit [facility] OPTOMETRY [address] [place] [address] Melody Lr, OD [address] [place] [address] documented as of this encounter Visit Diagnoses Diagnosis Primary hypertension Unspecified essential hypertension documented in this encounter Care Teams Supervisor Product Inspection Relationship Specialty Start Date End Date Antonella Gerard MD [address] [place] [address] PCP - General Family Medicine 02/24/18 documented as of this encounter
== END 2025-02-15 06:26 | disposition home or self-care (01) ==
LOC: CF 06:25
PROVIDERS: Visit Provider Anesthesiology
DX: M16.11 Unilateral primary osteoarthritis, right hip (principal)
CPT/HCPCS: 20610; J2795; J3301; Q9967

== ENCOUNTER 2025-02-15 13:05 | Outpatient (AMB) | payer MEDICARE, MEDICAID, SELFPAY ==
[2025-02-15 13:10] VITALS: BP 134/77; PULSE 85; RESP 16; O2SAT 96; BMI 48.1
--- NOTE | 2025-02-15 13:10 | MHC.OFFVIS ---
Vital Signs 02/15/25 13:10 02/15/25 13:57 Height 5 ft 6 in Weight 298 lb BMI 48.1 BP 134/77 107/76 Blood Pressure Location Lt brachial Lt brachial Position Sitting Sitting Respiration 16 16 Pulse 85 81 Pulse Source Pulse Oximeter Pulse Oximeter Pulse Oximetry (%) 96 96 Oxygen Delivery Method Room Air Room Air Intake Visit Reasons: Right intra-articular hip injection Allergies No Known Allergies Allergy (Verified 12/31/24 15:19) PFSH Medical History DDD (degenerative disc disease), lumbar Sleep apnea Asthma Elevated cholesterol HTN (hypertension) Gout Surgical History Hx of vasectomy H/O colonoscopy Social History Alcohol intake: former Patient Tobacco Use Status: Former Tobacco user Tobacco use type: Cigarette Cigarettes Per Day: 25 Years Smoked: 10 Physical Exam Vital Signs: Last Vital Signs Pulse 81 02/15/25 13:57 Resp 16 02/15/25 13:57 BP 107/76 02/15/25 13:57 Pulse Ox 96 02/15/25 13:57 Oxygen Delivery Method Room Air 02/15/25 13:57 BMI result Body Mass Index 48.1 Assessment & Plan Assessment & Plan (1) Right hip pain: Code(s): M25.551 - Pain in right hip Category: Medical (2) Degenerative arthritis: Code(s): M19.90 - Unspecified osteoarthritis, unspecified site Category: Medical (3) Osteoarthritis of right hip: Code(s): M16.11 - Unilateral primary osteoarthritis, right hip Category: Medical Plan Intra-articular right hip steroid injection. ? - Informed consent was explained to the patient. All questions were explained and answered.? The patient was taken inside of the operating room where she was positioned left lateral decubitus on operating table..? ? Time-out was performed delineating patient's name and date of , correct site, side, the nature of the procedure, patient's allergy, preoperative antibiotic if needed, need for VT prophylaxis..? All operating room staff was participating in OR time-out procedure.? ? Right hip area of the patient was prepped with ChloraPrep and draped with sterile towels.? Sterilely draped C-arm was brought over the operating field and picture of left and right lateral views of the bilateral hip joints were delineated on the screen.? The smaller joint silhouette was chosen as the target.? Direction of the femoral neck was noted..? Projection of the right trochanter to the skin was chosen as the initial needle insertion point.? After that the skin and subcutaneous tissues was anesthetized with 2% lidocaine 2.5 mL.? 22 gauge 5 in long needle was inserted through the skin and started to advance to the joint space under anterior posterior view.? When needle entered the capsule of the joint small amount of the contrast was injected delineating intra-articular space.? After that treatment solution containing4 mls of ropivacaine 0.5% and 40 mg of Kenalog was injected into the joint.? The needle was withdrawn sterile dressing was applied. Orders: Orders FL guidance in treatment room Today M25.551 - Pain in right hip Coding Level of Care Code Procedure Only Diagnoses Right hip pain M25.551 Degenerative arthritis M19.90 Osteoarthritis of right hip M16.11
[2025-02-15 13:57] VITALS: BP 107/76; PULSE 81; RESP 16; O2SAT 96
== END 2025-02-15 13:58 | disposition home or self-care (01) ==
LOC: HO.PMCPRC 13:05
PROVIDERS: PCP Internal Medicine; Visit Provider Anesthesiology
DX: M25.551 Pain in right hip (principal); M16.11 Unilateral primary osteoarthritis, right hip
CPT/HCPCS: 20610; 77002